=== PATIENT | female | born 1980 | race Caucasian/White ===

== ENCOUNTER 2023-10-10 18:46 | Inpatient (IN) | payer OTHER, SELFPAY ==
[2023-10-10 19:07] VITALS: BP 150/74; BP 209/118; PULSE 80; PULSE 84; RESP 18; TEMP 36.6; O2SAT 99; BMI 41.9
--- NOTE | 2023-10-10 19:27 | ED.GENADULT ---
HPI - General Adult General Chief complaint: Psychiatric Symptoms Stated complaint: SI W/ PLAN, SECT.12 Time Seen by Provider: 10/10/23 19:14 Source: patient Mode of arrival: EMS Limitations: no limitations History of Present Illness HPI narrative: 42 year old female with no known past medical history presents to the emergency department by ambulance. The patient reports that she was staying at her aunts house and that her aunt was concerned for her safety and proceeded to call an ambulance due to the patient expressing suicidal thoughts. Pt admits that she has been depressed for years and that a specific trigger in her life caused the depression. Pt did not wish to elaborate on the triggering event. Pt admits that I thought about ending my life today. When the pt was asked if she had any specific plans for SI she states Yes I have a few. Pt did not wish to elaborate further. She admits that she is on wellbutrin however states she has not been taking it. Pt states, I want to go home and I am anxious. Pt requesting medication for anxiety. Related Data Home Medications Medication Instructions Recorded Confirmed acyclovir 400 mg tablet 400 mg PO BID 10/10/23 10/10/23 linaclotide 145 mcg capsule 145 mcg PO QAM 10/10/23 10/10/23 (Linzess) semaglutide (weight loss) 2.4 2.4 mg subcut QWEEK 10/10/23 10/10/23 mg/0.75 mL subcutaneous pen injector (Wegovy) valsartan 80 mg tablet 80 mg PO BEDTIME 10/10/23 10/10/23 Allergies Allergy/AdvReac Type Severity Reaction Status Date / Time No Known Allergies Allergy Unverified 05/09/20 17:36 Review of Systems Constitutional: Constitutional: Reports as per HPI, Reports no additional constitutional complaints and Reports headache(s) ENT: Reports headache(s) Cardiovascular: Cardiovascular: Denies chest pain and Denies dyspnea Respiratory: Respiratory: Denies dyspnea Neurologic: Reports behavioral changes and Reports headache(s) Psychiatric: Psychiatric: Reports anxiety, Reports behavioral changes, Reports depression, Reports hopelessness and Reports suicidal ideation PMFSH Social History Social History Unable to assess alcohol history related to: Refusing to respond Smoked in Last 30 Days: No Use of substances other than those prescribed or required for medical reasons: Unable to respond Advance Directives: No Advance Directives Information Provided: No Patient : No Physical Exam ED Vital Signs: Vital Signs - 24 hr 10/11/23 20:10 10/12/23 05:00 Temperature 98.3 F 97.9 F Pulse Rate 91 66 Respiratory Rate 18 14 Blood Pressure 130/70 116/59 L Pulse Oximetry 98 98 Oxygen Delivery Method Room Air Room Air BMI result Body Mass Index 41.9 Const General: healthy appearing, comfortable, no acute distress, alert and awake Nutritional Appearance: well nourished Orientation/consciousness: patient oriented x3 HENMT Head: Yes normocephalic and Yes atraumatic Eyes Eyelids: Yes eyelids normal Resp Effort & Inspection: normal respiratory effort, able to speak in complete sentences and not labored Skin General skin exam: no rashes or lesions noted and elasticity normal Neuro General: patient oriented x3 Cranial nerves: Yes Bilaterally intact EOM present Cognition (Neuro): normal cognition Extrem Other: Moving all extremities well without any obvious deformities Course Reevaluation(s) Reevaluation #1: Patient's urine had 2+ bacteria but also over 20 squamous epithelial cells likely indicative of contamination. The patient states that she has no symptoms of urinary tract infection, no abdominal pain, dysuria frequency. Therefore we will not treat this as it is likely a contaminant. The patient was seen by the care team and was made a section 12 bed search for inpatient psychiatric care Time: 01:34 Reevaluation #2: 07:00 Oct 11 signed out to me by Dr. Plummer patient presented with SI on a Section 12 waiting for crisis eval no event reported over Time: 07:55 Reevaluation #3: Physician observation: Patient placed in physician observation 10/11/23 at 7am and still remains as a bedsearch and meets inpatient needs. She had an uneventful night and is not agitated. Medications Administered Generic Name Dose Route Start Last Admin Trade Name Freq PRN Reason Stop Dose Admin Acyclovir 400 mg 10/11/23 21:00 10/12/23 09:37 Acyclovir 200 Mg Capsule PO 400 mg BID SAMIRA Administration Valsartan 80 mg 10/11/23 21:00 10/11/23 20:22 Valsartan 80 Mg Tablet PO 80 mg BEDTIME SAMIRA Administration Protocol Discontinued Medications Generic Name Dose Route Start Last Admin Trade Name Freq PRN Reason Stop Dose Admin Acetaminophen 650 mg 10/10/23 20:05 10/10/23 20:29 Acetaminophen 325 Mg Tablet PO 10/10/23 20:06 650 mg ONCE ONE Administration Acyclovir 400 mg 10/10/23 22:03 10/10/23 22:27 Acyclovir 200 Mg Capsule PO 10/10/23 22:04 400 mg ONCE ONE Administration Diphenhydramine HCl 50 mg 10/11/23 21:54 10/11/23 22:09 Diphenhydramine Hcl 25 Mg Capsule PO 10/11/23 21:55 50 mg ONCE ONE Administration Lorazepam 1 mg 10/10/23 20:05 10/10/23 20:29 Lorazepam 1 Mg Tablet PO 10/10/23 20:06 1 mg ONCE ONE Administration Valsartan 80 mg 10/10/23 22:03 10/10/23 22:27 Valsartan 80 Mg Tablet PO 10/10/23 22:04 80 mg ONCE ONE Administration Protocol Medical Decision Making Medical Decision Making MDM Narrative: Patient will require medical clearance and care team evaluation. Differential Diagnosis Differential Diagnoses: The differential diagnosis associated with the presentation includes Suicidal Ideation Schizoaffective Disorder Bipolar Disorder Major Depressive Disorder Substance Abuse Disorder Lab Data 10/10/23 20:40 10/10/23 20:40 Labs: Lab Results 10/10/23 Range/Units 20:40 WBC 12.1 H (4.8-10.8) X10*3/uL RBC 4.51 (4.20-5.50) X10*6/uL Hgb 14.1 (12.0-16.0) g/dl Hct 41.5 (37.0-47.0) % MCV 92.0 (80.0-98.0) fL MCH 31.3 (27.0-33.0) pg MCHC 34.0 (31.0-35.0) g/dl RDW 12.6 (11.0-16.0) % Plt Count 244 (160-400) X10*3/uL MPV 10.8 (9.4-12.3) fL Immature Gran % (Auto) 0.2 (0.0-0.4) % Neut % (Auto) 77.9 H (45-73) % Lymph % (Auto) 16.1 L (20-40) % [place] % (Auto) 4.8 (2-11) % Eos % (Auto) 0.7 (0-4) % Baso % (Auto) 0.3 (0-2) % Lymph # (Auto) 1.9 (1.2-4.9) X10*3/uL [place] # (Auto) 0.6 (0.1-1.2) X10*3/uL Eos # (Auto) 0.1 (0.0-0.4) X10*3/uL Baso # (Auto) 0.0 (0.0-0.2) X10*3/uL Abs Immat Gran (auto) 0.03 (0.00-0.03) X10*3/uL Absolute Neuts (auto) 9.4 H (2.0-8.3) x10*3/uL Absolute Nucleated RBC 0.000 (0.0-0.012) X10*3/uL Nucleated RBC % (auto) 0.0 (0.0-0.2) /100WBC Sodium 140 (135-145) mmol/L Potassium 4.0 (3.3-5.1) mmol/L Chloride 107 (96-108) mmol/L Carbon Dioxide 25 (22-29) mmol/L Anion Gap 12 (12-20) BUN 16 (9-16) mg/dL Creatinine 0.88 (0.5-1.4) mg/dL Estim Creat Clear Calc 107.2 Estimated GFR > 60 Random Glucose 97 (60-115) mg/dL Calcium 9.5 (8.4-10.2) mg/dL Total Bilirubin 0.2 (0.0-1.0) mg/dL AST 11 (5-31) U/L ALT 12 (0-31) U/L Alkaline Phosphatase 94 (39-117) U/L Total Protein 7.5 (6.5-8.0) g/dL Albumin 4.2 (3.5-5.0) g/dL Urine Color Dark Yellow Urine Appearance Cloudy Urine pH 5.5 (5.0-9.0) Ur Specific [place] >= 1.030 H (1.005-1.025) Urine Protein 30 (1+) H (Neg-Trace) mg/dL Urine Glucose (UA) Negative (Negative) mg/dL Urine Ketones Trace (Negative) mg/dL Urine Blood Large (3+) H (Negative) Urine Nitrite Negative (Negative) Ur Leukocyte Esterase Small (1+) H (Negative) Urine RBC >20 H (0-2) /HPF Urine WBC 11-20 H (0-5) /HPF Ur Squamous Epith Cells >20 (0-2) /HPF Urine Bacteria 2+ (None Seen) Hyaline Casts 0-2 (0-2) /LPF Urine Test NEGATIVE (NEGATIVE) Salicylates < 5.0 L (15-30) mg/dL Urine Opiates Screen Not Detected (Not Detect) Urine Fentanyl Screen Not Detected (Not Detect) Acetaminophen < 3 (<30) mcg/mL Ur Barbiturates Screen Not Detected (Not Detect) Ur Phencyclidine Scrn Not Detected (Not Detect) Ur Amphetamines Screen Not Detected (Not Detect) U Benzodiazepines Scrn Not Detected (Not Detect) Urine Cocaine Screen Not Detected (Not Detect) U Marijuana (THC) Screen Not Detected (Not Detect) Ethyl Alcohol < 10 mg/dL COVID-19 (SUIR) Negative (Negative) COVID-19 Clin Com See Note Discharge Plan Discharge Clinical Impression: Depression Patient Disposition: Still a Patient Prescriptions: No Action valsartan 80 mg tablet 80 mg PO BEDTIME acyclovir 400 mg tablet 400 mg PO BID Linzess 145 mcg capsule 145 mcg PO QAM Wegovy 2.4 mg/0.75 mL pen injector 2.4 mg subcut QWEEK Interventions: [place]-Suicide Risk Severity Scale Last Done: 10/12/23 06:10
--- NOTE | 2023-10-10 19:38 | PC.NURSE ---
supplemental triage note: client has chronic GI issue with cnstipation, linzess in bag. patient contracted std (seemingly herpes) from and as a result feels despondent regarding this feeling like shes cursed forever (seemingly, intimately) no history of psycjhiatric hospitalizations did go to [facility] resp[facility] 2020 summer reports is a sdrinker, this isnt a concern for her. reports no recent hallucinations and contracts for safety here.
[2023-10-10] MEDS: LORazepam 1 MG TABLET PO (20:29)
[2023-10-10] MEDS: Acetaminophen 325 MG TABLET 650 MG PO (20:29)
[2023-10-10 20:49] LABS: MANUAL DIFF FLAG NO
[2023-10-10 20:52] LABS: Basophils Percent Auto 0.3 % (0-2); Eosinophils Absolute Auto 0.1 X10*3/uL (0.0-0.4); Eosinophils Percent Auto 0.7 % (0-4); Hematocrit 41.5 % (37.0-47.0); Hemoglobin 14.1 g/dl (12.0-16.0); Imm Gran Abs Auto 0.03 X10*3/uL (0.00-0.03); Imm Gran Pct Auto 0.2 % (0.0-0.4); Lymphocytes Absolute Auto 1.9 X10*3/uL (1.2-4.9); Lymphocytes Percent Auto 16.1 % (20-40); Mean Corpuscular Hemoglobin 31.3 pg (27.0-33.0); Mean Platelet Volume 10.8 fL (9.4-12.3); Monocytes Absolute Auto 0.6 X10*3/uL (0.1-1.2); Monocytes Percent Auto 4.8 % (2-11); Neutrophils Absolute Auto 9.4 x10*3/uL (2.0-8.3); Neutrophils Percent Auto 77.9 % (45-73); Platelet Count 244 X10*3/uL (160-400); Red Blood Count 4.51 X10*6/uL (4.20-5.50); Red Cell Distribution Width 12.6 % (11.0-16.0); White Blood Count 12.1 X10*3/uL (4.8-10.8)
[2023-10-10 20:53] LABS: Appearance Urine Cloudy; Color Urine Dark Yellow; Glucose Urine UA Negative (Negative); Leukocyte Esterase Urine Small (1+) (Negative); Nitrite Urine Negative (Negative); PH 5.5 (5.0-9.0); Specific Gravity - Urine >= 1.030 (1.005-1.025); UMIC TRIGGER UA YES; Urine Blood Large (3+) (Negative); Urine Ketones Trace mg/dL (Negative); Urine Protein 30 (1+) mg/dL (Neg-Trace)
[2023-10-10 20:54] LABS: UPreg QC Valid YES; Urine Pregnancy NEGATIVE (NEGATIVE)
[2023-10-10 20:58] LABS: Bacteria Urine 2+ (None Seen); Hyaline Casts Urine 0-2 /LPF (0-2); RBC Urine >20 /HPF (0-2); Squamous Epithelial Cell Urine >20 /HPF (0-2)
[2023-10-10 21:00] LABS: Amphetamine Screen Urine Not Detected (Not Detect); Barbiturates, Urine Not Detected (Not Detect); Benzodiazepines Screen Urine Not Detected (Not Detect); Cannabinoid Screen Urine Not Detected (Not Detect); Cocaine Screen Urine Not Detected (Not Detect); Fentanyl, urine Not Detected (Not Detect); Opiate Screen Urine Not Detected (Not Detect); Phencyclidine Screen Urine Not Detected (Not Detect)
[2023-10-10 21:12] LABS: COVID-19 Test Negative (Negative); IDNOW Serial# 08D9AD1C
[2023-10-10 21:37] LABS: Acetaminophen LAB < 3 mcg/mL (<30); Salicylate < 5.0 mg/dL (15-30)
[2023-10-10 21:38] LABS: Alanine Aminotransferase 12 U/L (0-31); Albumin Level 4.2 g/dL (3.5-5.0); Alkaline Phosphatase 94 U/L (39-117); Anion Gap 12 (12-20); Aspartate Amino Transferase 11 U/L (5-31); Bilirubin Total 0.2 mg/dL (0.0-1.0); Blood Urea Nitrogen 16 mg/dL (9-16); Calcium 9.5 mg/dL (8.4-10.2); Carbon Dioxide 25 mmol/L (22-29); Chloride 107 mmol/L (96-108); Creatinine Clr Calc Pharmacy 107.2; Estimated Glomerular Filt Rate > 60; Ethanol < 10 mg/dL; Glucose Random 97 mg/dL (60-115); Sodium 140 mmol/L (135-145); Total Protein 7.5 g/dL (6.5-8.0)
[2023-10-10] MEDS: Valsartan 80 MG TABLET PO (22:27)
[2023-10-10] MEDS: Acyclovir 200 MG CAPSULE 400 MG PO (22:27)
[2023-10-11 06:36] VITALS: RESP 17
--- NOTE | 2023-10-11 07:40 | PC.NURSE ---
Assumed care of patient at 0700, patient appears to be sleeping at this time, respirations even and unlabored, no apparent distress. Plan of care for IPLOC
--- NOTE | 2023-10-11 08:47 | MHC.CARE ---
RAD Team conducted statewide bedsearch, referral being reviewed by [facility], [facility], [facility], [facility] , [facility] , [facility] , [facility],and [place]. RAD team to f/u with facilities to see outcome
--- NOTE | 2023-10-11 13:35 | MHC.CARE ---
Patient requests no information be given out to her aunt or anyone else regarding her care.
--- NOTE | 2023-10-11 18:40 | PC.NURSE ---
Pt has unventful day in the pod, spending most of the time in her room. Occasionally ambulating independently to bathroom and common area without issue. Pt offers no complaints to this RN. night medications ordered by provider
[2023-10-11 20:10] VITALS: BP 130/70; PULSE 91; RESP 18; TEMP 36.8; O2SAT 98
[2023-10-11] MEDS: Acyclovir 200 MG CAPSULE 400 MG PO (20:22)
[2023-10-11] MEDS: Valsartan 80 MG TABLET PO (20:22)
[2023-10-11] MEDS: diphenhydrAMINE HCL 25 MG CAPSULE 50 MG PO (22:09)
[2023-10-12 05:00] VITALS: BP 116/59; PULSE 66; RESP 14; TEMP 36.6; O2SAT 98
[2023-10-12] MEDS: Acyclovir 200 MG CAPSULE 400 MG PO ×2 (09:37→20:58)
--- NOTE | 2023-10-12 10:28 | MHC.CARE ---
RAD Team conducted statewide bedsearch, referral being reviewed by [facility] martinez, [facility], [facility], [facility] , [facility] , [facility] , [facility] and [place]. RAD team to f/u with facilities to see outcome
[2023-10-12 12:00] LABS: COVID-19 Test Negative (Negative); IDNOW Serial# 6674DD1D
[2023-10-12 15:20] VITALS: BP 124/60; PULSE 80; RESP 16; TEMP 36.6; O2SAT 98
--- NOTE | 2023-10-12 15:43 | PC.NURSE ---
Patient resting quietly in her room at this time. Appropriately approaching nurse's station for requests.
[2023-10-12] MEDS: Valsartan 80 MG TABLET PO (20:59)
[2023-10-12] MEDS: LORazepam 1 MG TABLET PO (21:00)
[2023-10-12 21:04] VITALS: BP 132/72; PULSE 95; RESP 18; TEMP 36.3; O2SAT 95
--- NOTE | 2023-10-12 23:24 | MHC.CARE ---
RAD Team conducted state wide bed search for this pt, referral was sent to [place], [facility], [facility], [facility], [facility], [facility], [facility], [facility], [facility], [facility] for review. RAD Team to follow up tomorrow
--- NOTE | 2023-10-13 07:14 | PC.NURSE ---
Assumed care of patient at 0700, patient is up in chair eating breakfast at this time, offering no complaints to this RN, respirations even and unlabored, no apparent distress. Continue plan of care for sec 12, inpt bedsearch
[2023-10-13] MEDS: Acyclovir 200 MG CAPSULE 400 MG PO ×2 (08:44→21:46)
[2023-10-13 10:34] VITALS: BP 117/59; PULSE 85; RESP 18; TEMP 37.1; O2SAT 97
[2023-10-13 18:49] VITALS: BP 120/64; PULSE 90; RESP 15; TEMP 36.4; O2SAT 99
[2023-10-13 18:53] VITALS: BMI 42.0
--- NOTE | 2023-10-13 19:29 | HO.PSYEVENT2 ---
Event Note Date of Service: 10/13/23 Psych On-Call Event Note: concerns regarding pts mental status denies active si in this setting after nursing discussion change to 5 min cks Time Spent With Patient Time: Total time managing care of this patient today ____ minutes.
[2023-10-13] MEDS: LORazepam 1 MG TABLET PO (19:36)
--- NOTE | 2023-10-13 19:45 | PC.NURSE ---
Skin check completed, skin clear. Pt placed on 5 minute checks d/t safety concerns for SI with a plan that keeps changing. Admission incomplete and passed off to incoming nurse.
[2023-10-13 21:40] VITALS: BP 124/78; PULSE 73; RESP 16; TEMP 36.5; O2SAT 97
[2023-10-13] MEDS: hydrOXYzine HCL 25 MG TABLET PO (21:46)
[2023-10-13] MEDS: Valsartan 80 MG TABLET PO (21:46)
--- NOTE | 2023-10-14 06:42 | PC.ADMIT ---
Pt is a 42 year old female admitted to the unit on a CV after referral from the CARE team at [facility] ED. Arrived on unit at 1841, 3 day notice signed. This is the pt?s [address]st admission to [facility]s behavioral health unit. Pt was diagnosed with herpes a couple of years ago, which she contracted from an ex-bf. She states that this is when her depression started, and she is depressed at ?baseline?, however for unknown reason today she felt like ?everything was falling apart?, and made suicidal statements while having dinner with her aunt, who then called 911. Pt feels that she has had multiple failed relationships since this diagnosis, and feels that she will now be alone forever. Pt reported feeling as though she cannot see the point of living, and expressed SI with plans to either take a bottle of pills or stay outside all night and freeze to . She denies sleep or appetite disturbances. Denies AH/VH. Pt reportedly went to a [facility] in 2020 and was prescribed medications, however once she started feeling better she stopped taking them. She has an outpatient therapist at [facility], but does not have a psychiatric med prescriber; her PCP has reportedly been prescribing her meds. Pt reports a history of SI, denied any attempts or self-harming behavior. At time of admission to the unit pt presented as extremely anxious and tearful, reported feeling ?overwhelmed?. Pt was given prn ativan with positive effect. Thought process was logical and organized, no evidence of perceptual disturbance noted. Pt was placed on 5 minute safety checks due to suicidal thoughts and level of anxiety, however denied intent on the unit.?
[2023-10-14 07:45] LABS: Cholesterol 169 mg/dL (<200); HDL Cholesterol 48 mg/dL (>40); LDL Cholesterol Calculated 106 mg/dL (<100); Triglycerides 76 mg/dL (<150)
[2023-10-14 07:50] VITALS: BP 98/51; PULSE 89; RESP 14; TEMP 36; O2SAT 97
[2023-10-14 08:01] LABS: Thyroid Stimulating Hormone 2.14 uIU/mL (0.32-4.0)
[2023-10-14 08:03] LABS: Estimated Average Glucose 94 mg/dL; Hemoglobin A1c % 4.9 % (<6.0)
[2023-10-14 08:28] LABS: Vitamin B12 760 pg/mL (200-900)
[2023-10-14] MEDS: Acyclovir 200 MG CAPSULE 400 MG PO ×2 (08:35→21:52)
[2023-10-14] MEDS: PT OWN (Linaclotide [Linzess] 145 mcg capsule) 145 EACH PO (08:35)
--- NOTE | 2023-10-14 08:44 | PHA.MEDREC ---
Pharmacy Consult ? Medication Reconciliation Pharmacy has completed the medication reconciliation.Pharmacy has completed med rec done by nursing. Confirmed that pt has stopped taking bupropion.
--- NOTE | 2023-10-14 09:59 | HO.PSYADMNOT ---
HPI Date of Service: 10/14/23 Chief Complaint: SI/depression Sources of Information: patient interviewed, chart reviewed and crisis/core team assessment reviewed HPI Subjective Notes: Khan Warning, Conditional Voluntary and 3 Day Narrative: Patient is a 42 year old female with hx of MDD and PTSD who presented to ED secondary to suicidal ideation d/t increased depressive symptoms. Per crisis report, pt is currently residing with her aunt who called 911 d/t patient reporting suicidal ideation. Pt reported hx of failed romantic relationships since her diagnosis of herpes; which had made the patient believe she will always be alone. She reported being depressed since this occurred. Pt reported suicide plan to either take a bottle of pills or go outside and freeze to . denies HI/VH/AH. During admission assessment, pt presents calm, cooperative and tearful. Pt reports feeling depressed and hopeless ; pt stated, I came to the hospital because my aunt called 911 because I was saying I was going to hurt myself. I've been really depressed since my ex OD'd and then the person I dated after him gave me herpes then broke up with me. Everyone breaks up with me after they hear the word herpes. It makes me feel hopeless . Pt reports she feels she is going to stop telling people I have herpes to just have a normal life . She reports being in online support groups. Pt reports suicidal ideation; pt stated, I do feel suicidal but I want to go home. I was thinking of either taking pills or sleeping outside and dying of the cold . Pt denies any substance use. She reports being prescribed Wellbutrin recently but stopped taking it because it was the situation in my life that is making me sad not that I'm sad for no reason . Pt reports she would like to start taking Wellbutrin again to see if it works ; hx of taking Paxil and Prozac but stated, they only made me gain weight . denies HI/VH/AH. Past Psychiatric History: Therapist: Violetta ([facility]) does not have outpatient psychiatric prescriber. denies any prior suicide attempts or self harming behavior. denies hx of inpatient psychiatric hospitalizations. hx med trials: Paxil, Prozac, Wellbutrin. Medical Evaluation Reviewed: Yes [facility] Family History: Mother: schizophrenia Father: depression Sister: depression Social History: Living with aunt in [place], [place]. Single, no children. 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 Substance History: denies Trauma History: yes Diagnostics Vital Signs (24Hr): Vital Signs - 24 hr 10/13/23 10:34 10/13/23 18:49 10/13/23 21:40 Temperature 98.7 F 97.6 F 97.7 F Pulse Rate 85 90 73 Respiratory Rate 18 15 16 Blood Pressure 117/59 L 120/64 124/78 Pulse Oximetry 97 99 97 Oxygen Delivery Method Room Air Room Air Room Air 10/14/23 07:50 Temperature 96.8 F Pulse Rate 89 Respiratory Rate 14 Blood Pressure 98/51 L Pulse Oximetry 97 Oxygen Delivery Method Room Air BMI result Body Mass Index 42.0 Labs 10/10/23 20:40 10/10/23 20:40 Labs: Laboratory Results - last 48 hr 10/12/23 10/14/23 11:09 07:09 Estimat Average Glucose 94 Hemoglobin A1c % 4.9 Triglycerides 76 Cholesterol 169 LDL Cholesterol, Calc 106 H HDL Cholesterol 48 Vitamin B12 760 Folate 8.0 TSH 2.14 Free T4 1.00 COVID-19 (SURI) Negative COVID-19 Clin Com See Note Meds/Allergies Meds Home Medications Medication Instructions Recorded Confirmed Type acyclovir 400 mg tablet 400 mg PO BID 10/10/23 10/10/23 History linaclotide 145 mcg capsule 145 mcg PO QAM 10/10/23 10/10/23 History (Linzess) semaglutide (weight loss) 2.4 2.4 mg subcut QWEEK 10/10/23 10/10/23 History mg/0.75 mL subcutaneous pen injector (Ambrose) valsartan 80 mg tablet 80 mg PO BEDTIME 10/10/23 10/10/23 History Allergies Allergies Allergy/AdvReac Type Severity Reaction Status Date / Time No Known Allergies Allergy Verified 10/13/23 18:24 Mental Status Exam Mental Status Exam Narrative: Pt is alert and oriented; behavior is cooperative, calm, tearful; dressed in casual attire; mood is described as depressed ; eye contact appropriate; Speech is normal rate, volume and prosody and not pressured; thought process is organized; Thought content is on tx; otherwise pertinent to relevant topics and without any delusional content, paranoid ideations or grandiosity; denies HI/VH/AH. Pt reports suicidal ideation with plan. Assessment & Plan Assessment & Plan (1) MDD (major depressive disorder): Status: Acute Code(s): F32.9 - Major depressive disorder, single episode, unspecified (2) PTSD (post-traumatic stress disorder): Status: Acute Code(s): F43.10 - Post-traumatic stress disorder, unspecified Plan Patient is a 42 year old female with hx of MDD and PTSD who presented to ED secondary to suicidal ideation d/t increased depressive symptoms. Plan: CV Signed 3 day notice 15 minute safety checks continue home medications Start: Wellbutrin XL 150mg PO daily Referral to outpatient psychiatric provider discharge planning Patient educated on: diagnosis, medication risk/benefits and therapeutic strategies Informed Consent: understands Reason for continued inpatient stay Substantial Risk for: harm to self and med/psych decompensation Statement Statement: I have reviewed the history and physical and performed a pertinent examination on my patient. No changes have occurred unless specified. If the History and Physical was not performed prior to admission, the Hospitalist's service will be consulted for completing the admission physical. Time Spent With Patient Time: Total time managing care of this patient today _60___ minutes.
[2023-10-14 12:14] VITALS: BMI 41.9
[2023-10-14 21:50] VITALS: BP 118/64; PULSE 80; RESP 16; TEMP 36.4; O2SAT 99
[2023-10-14] MEDS: Valsartan 80 MG TABLET PO (21:52)
[2023-10-14] MEDS: traZODone HCL 50 MG TABLET PO (21:52)
[2023-10-14] MEDS: LORazepam 0.5 MG TABLET PO (21:52)
[2023-10-15 07:25] VITALS: BP 107/54; PULSE 83; RESP 18; TEMP 36.1; O2SAT 94
[2023-10-15] MEDS: Acyclovir 200 MG CAPSULE 400 MG PO ×2 (08:13→21:21)
[2023-10-15] MEDS: buPROPion HCl XL 150 MG TAB.ER.24H PO (08:13)
[2023-10-15] MEDS: PT OWN (Linaclotide [Linzess] 145 mcg capsule) 145 EACH PO (08:13)
--- NOTE | 2023-10-15 08:58 | HO.PSYCHPN ---
Subjective Subjective Date of Service: 10/15/23 Reason For Visit: SI/depression Subjective Notes: 3 Day Interim History: Reviewed with Dr. Davila. Pt continues to report feeling anxious and depressed ; pt stated, I feel down and hopeless. People with cold sores don't tell people before dating. I'm not going to tell people I have herpes . Pt reports suicidal ideation. denies HI/VH/AH. attending groups. keeping to self. Medication Compliance: Yes Side effects from medications: No Attending Groups: Yes Review of Systems Constitutional: Reports as per HPI Eyes: Reports as per HPI Reports as per HPI Cardiovascular: Reports as per HPI Respiratory: Reports as per HPI Gastrointestinal: Reports as per HPI Genitourinary: Reports as per HPI Musculoskeletal: Reports as per HPI Skin/Breast: Reports as per HPI Reports as per HPI Psychiatric: Reports as per HPI Endocrine: Reports as per HPI Hematologic/Lymphatic: Reports as per HPI Allergic/Immunologic: Reports as per HPI Mental Status Exam Mental Status Exam Narrative: Pt is alert and oriented; behavior is cooperative, calm, tearful; dressed in casual attire; mood is described as depressed ; eye contact appropriate; Speech is normal rate, volume and prosody and not pressured; thought process is organized; Thought content is on tx; otherwise pertinent to relevant topics and without any delusional content, paranoid ideations or grandiosity; denies HI/VH/AH. Pt reports suicidal ideation with plan. Diagnostics Vital Signs (24Hr): Vital Signs - 24 hr 10/14/23 21:50 10/15/23 07:25 Temperature 97.5 F 97.0 F Pulse Rate 80 83 Respiratory Rate 16 18 Blood Pressure 118/64 107/54 L Pulse Oximetry 99 94 Oxygen Delivery Method Room Air Room Air BMI result Body Mass Index 41.9 Labs 10/10/23 20:40 10/10/23 20:40 Labs: Laboratory Results - last 48 hr 10/14/23 07:09 Estimat Average Glucose 94 Hemoglobin A1c % 4.9 Triglycerides 76 Cholesterol 169 LDL Cholesterol, Calc 106 H HDL Cholesterol 48 Vitamin B12 760 Folate 8.0 TSH 2.14 Free T4 1.00 Medications Medications Current Medications Acetaminophen (Acetaminophen 325 Mg Tablet) 650 mg PO Q6H PRN PRN Reason: Headache/Pain Mild Scale (1-3) Acyclovir (Acyclovir 200 Mg Capsule) 400 mg PO BID SAMIRA Last Admin: 10/15/23 08:13 Dose: 400 mg Al Hydroxide/Mg Hydroxide (Magnesium Hydrox/Alum Hydrox 30 Ml Oral.Susp) 30 ml PO Q6H PRN PRN Reason: Heartburn/Nausea Bupropion HCl (Bupropion Hcl Xl 150 Mg Tab.Er.24h) 150 mg PO DAILY [facility] Last Admin: 10/15/23 08:13 Dose: 150 mg Hydroxyzine HCl (Hydroxyzine Hcl 25 Mg Tablet) 25 mg PO Q6H PRN PRN Reason: Anxiety Last Admin: 10/13/23 21:46 Dose: 25 mg Lorazepam (Lorazepam 0.5 Mg Tablet) 0.5 mg PO BID PRN PRN Reason: Anxiety Last Admin: 10/14/23 21:52 Dose: 0.5 mg Magnesium Hydroxide (Milk Of Magnesia 30 Ml Oral.Susp) 30 ml PO DAILY PRN PRN Reason: Constipation Pt Own (Linaclotide [Linzess] 145 Mcg Capsule) 145 mcg PO DAILY@0630 [facility] Last Admin: 10/15/23 08:13 Dose: 145 mcg Pat Own Med ( Semaglutide [Wegovy] 2.4 Mg/0.75 Ml Pen Injector) 2.4 mg SUBCUT We@0900 [facility] Last Admin: 10/13/23 13:49 Dose: Not Given Trazodone HCl (Trazodone Hcl 50 Mg Tablet) 50 mg PO BEDTIME MRX1 PRN PRN Reason: Insomnia Last Admin: 10/14/23 21:52 Dose: 50 mg Valsartan (Valsartan 80 Mg Tablet) 80 mg PO BEDTIME [facility]; Protocol Last Admin: 10/14/23 21:52 Dose: 80 mg Allergies Allergies Allergy/AdvReac Type Severity Reaction Status Date / Time No Known Allergies Allergy Verified 10/13/23 18:24 Assessment & Plan Assessment & Plan (1) MDD (major depressive disorder): Status: Acute Code(s): F32.9 - Major depressive disorder, single episode, unspecified (2) PTSD (post-traumatic stress disorder): Status: Acute Code(s): F43.10 - Post-traumatic stress disorder, unspecified Plan Patient is a 42 year old female with hx of MDD and PTSD who presented to ED secondary to suicidal ideation d/t increased depressive symptoms. Plan: CV Signed 3 day notice 15 minute safety checks continue home medications Start: Wellbutrin XL 150mg PO daily Referral to outpatient psychiatric provider discharge planning 10/15: Pt continues to report feeling anxious and depressed ; pt stated, I feel down and hopeless. People with cold sores don't tell people before dating. I'm not going to tell people I have herpes . Pt reports suicidal ideation. denies HI/VH/AH. attending groups. keeping to self. continue current tx plan. Patient educated on: diagnosis, medication risk/benefits and therapeutic strategies Informed Consent: understands Reason for continued inpatient stay Substantial Risk for: harm to self and med/psych decompensation Time Spent With Patient Time: Total time managing care of this patient today _20___ minutes.
[2023-10-15 21:15] VITALS: BP 107/66; PULSE 90; RESP 16; TEMP 36.2; O2SAT 100
[2023-10-15] MEDS: Valsartan 80 MG TABLET PO (21:21)
[2023-10-15] MEDS: LORazepam 0.5 MG TABLET PO (21:21)
[2023-10-15] MEDS: hydrOXYzine HCL 25 MG TABLET PO (21:21)
[2023-10-16 07:20] VITALS: BP 103/50; PULSE 107; RESP 16; TEMP 37.2; O2SAT 95
[2023-10-16] MEDS: PT OWN (Linaclotide [Linzess] 145 mcg capsule) 145 EACH PO (08:58)
[2023-10-16] MEDS: buPROPion HCl XL 150 MG TAB.ER.24H PO (08:58)
[2023-10-16] MEDS: Acyclovir 200 MG CAPSULE 400 MG PO ×2 (08:58→21:16)
--- NOTE | 2023-10-16 14:57 | HO.PSYCHPN ---
Subjective Subjective Date of Service: 10/16/23 Reason For Visit: SI/depression Interim History: Patient seen and discussed with RN. She reports she is feeling a little better. She is having sore throat. Denies active SI. Is on 5 min checks. Discussed with team to go to 15 min checks. Anxiety and depression continue. Review of Systems Constitutional: Reports as per HPI, Reports no additional constitutional complaints and Reports headache(s) Eyes: Reports as per HPI Reports as per HPI and Reports headache(s) Cardiovascular: Reports as per HPI, Denies chest pain and Denies dyspnea Respiratory: Reports as per HPI and Denies dyspnea Gastrointestinal: Reports as per HPI Musculoskeletal: Reports as per HPI Skin/Breast: Reports as per HPI Reports as per HPI, Reports behavioral changes and Reports headache(s) Psychiatric: Reports as per HPI, Reports anxiety, Reports behavioral changes, Reports depression, Reports hopelessness and Reports suicidal ideation Endocrine: Reports as per HPI Hematologic/Lymphatic: Reports as per HPI Allergic/Immunologic: Reports as per HPI Mental Status Exam Mental Status Exam Narrative: Pt is alert and oriented; behavior is cooperative, calm, tearful; dressed in casual attire; mood is described as depressed ; eye contact appropriate; Speech is normal rate, volume and prosody and not pressured; thought process is organized; Thought content is on tx; otherwise pertinent to relevant topics and without any delusional content, paranoid ideations or grandiosity; denies HI/VH/AH. Pt reports suicidal ideation with plan. Diagnostics Vital Signs (24Hr): Vital Signs - 24 hr 10/15/23 21:15 10/16/23 07:20 Temperature 97.1 F 98.9 F Pulse Rate 90 107 H Respiratory Rate 16 16 Blood Pressure 107/66 103/50 L Pulse Oximetry 100 95 Oxygen Delivery Method Room Air Room Air BMI result Body Mass Index 41.9 Labs 10/10/23 20:40 10/10/23 20:40 Medications Medications Current Medications Acetaminophen (Acetaminophen 325 Mg Tablet) 650 mg PO Q6H PRN PRN Reason: Headache/Pain Mild Scale (1-3) Acyclovir (Acyclovir 200 Mg Capsule) 400 mg PO BID [facility] Last Admin: 10/16/23 08:58 Dose: 400 mg Al Hydroxide/Mg Hydroxide (Magnesium Hydrox/Alum Hydrox 30 Ml Oral.Susp) 30 ml PO Q6H PRN PRN Reason: Heartburn/Nausea Bupropion HCl (Bupropion Hcl Xl 150 Mg Tab.Er.24h) 150 mg PO DAILY [facility] Last Admin: 10/16/23 08:58 Dose: 150 mg Hydroxyzine HCl (Hydroxyzine Hcl 25 Mg Tablet) 25 mg PO Q6H PRN PRN Reason: Anxiety Last Admin: 10/15/23 21:21 Dose: 25 mg Lorazepam (Lorazepam 0.5 Mg Tablet) 0.5 mg PO DAILY PRN PRN Reason: Anxiety Last Admin: 10/15/23 21:21 Dose: 0.5 mg Magnesium Hydroxide (Milk Of Magnesia 30 Ml Oral.Susp) 30 ml PO DAILY PRN PRN Reason: Constipation Pt Own (Linaclotide [Linzess] 145 Mcg Capsule) 145 mcg PO DAILY@0630 [facility] Last Admin: 10/16/23 08:58 Dose: 145 mcg Pat Own Med ( Semaglutide [Wegovy] 2.4 Mg/0.75 Ml Pen Injector) 2.4 mg SUBCUT We@0900 [facility] Last Admin: 10/13/23 13:49 Dose: Not Given Trazodone HCl (Trazodone Hcl 50 Mg Tablet) 50 mg PO BEDTIME MRX1 PRN PRN Reason: Insomnia Last Admin: 10/14/23 21:52 Dose: 50 mg Valsartan (Valsartan 80 Mg Tablet) 80 mg PO BEDTIME [facility]; Protocol Last Admin: 10/15/23 21:21 Dose: 80 mg Allergies Allergies Allergy/AdvReac Type Severity Reaction Status Date / Time No Known Allergies Allergy Verified 10/13/23 18:24 Assessment & Plan Assessment & Plan (1) MDD (major depressive disorder): Status: Acute Code(s): F32.9 - Major depressive disorder, single episode, unspecified (2) PTSD (post-traumatic stress disorder): Status: Acute Code(s): F43.10 - Post-traumatic stress disorder, unspecified Plan Patient is a 42 year old female with hx of MDD and PTSD who presented to ED secondary to suicidal ideation d/t increased depressive symptoms. Plan: CV Signed 3 day notice 15 minute safety checks continue home medications Start: Wellbutrin XL 150mg PO daily Referral to outpatient psychiatric provider discharge planning 10/15: Pt continues to report feeling anxious and depressed ; pt stated, I feel down and hopeless. People with cold sores don't tell people before dating. I'm not going to tell people I have herpes . Pt reports suicidal ideation. denies HI/VH/AH. attending groups. keeping to self. continue current tx plan. 10/16: Continue current management and treatment plan. Reason for continued inpatient stay Substantial Risk for: harm to self and rapid decompensation Time Spent With Patient Time: Total time managing care of this patient today ____ minutes.
[2023-10-16 21:05] VITALS: BP 138/63; PULSE 97; RESP 16; TEMP 36.9; O2SAT 97
[2023-10-16] MEDS: Valsartan 80 MG TABLET PO (21:16)
[2023-10-16] MEDS: LORazepam 0.5 MG TABLET PO (21:17)
[2023-10-16] MEDS: hydrOXYzine HCL 25 MG TABLET PO (21:17)
[2023-10-16] MEDS: guaiFENesin LA 600 MG TAB.ER.12H PO (21:34)
[2023-10-16] MEDS: Throat Lozenge, Medicated LOZENGE 1 LOZENGE MUCOUS MEM (21:34)
[2023-10-17 07:15] VITALS: BP 88/52; PULSE 92; RESP 16; TEMP 37; O2SAT 95
[2023-10-17] MEDS: Acyclovir 200 MG CAPSULE 400 MG PO ×2 (08:42→21:08)
[2023-10-17] MEDS: PT OWN (Linaclotide [Linzess] 145 mcg capsule) 145 EACH PO (08:42)
[2023-10-17] MEDS: buPROPion HCl XL 150 MG TAB.ER.24H PO (08:42)
[2023-10-17 09:54] LABS: IDNOW Serial# 08D9AD1C; Strep A Nucleic Acid Negative (Negative)
[2023-10-17 09:56] LABS: COVID-19 Test Negative (Negative); IDNOW Serial# 152EDE1D
--- NOTE | 2023-10-17 14:43 | HO.PSYCHPN ---
Subjective Subjective Date of Service: 10/17/23 Reason For Visit: SI/depression Interim History: Patient seen and discussed with RN. Continues to have cold symptoms. Cough and sore throat. Strep and COVID tests were negative. She reports she is feeling a little better overall. Denies active SI. Is on 15 min checks. Review of Systems Constitutional: Reports as per HPI, Reports no additional constitutional complaints and Reports headache(s) Eyes: Reports as per HPI Reports as per HPI and Reports headache(s) Cardiovascular: Reports as per HPI, Denies chest pain and Denies dyspnea Respiratory: Reports as per HPI and Denies dyspnea Gastrointestinal: Reports as per HPI Musculoskeletal: Reports as per HPI Skin/Breast: Reports as per HPI Reports as per HPI, Reports behavioral changes and Reports headache(s) Psychiatric: Reports as per HPI, Reports anxiety, Reports behavioral changes, Reports depression, Reports hopelessness and Reports suicidal ideation Endocrine: Reports as per HPI Hematologic/Lymphatic: Reports as per HPI Allergic/Immunologic: Reports as per HPI Mental Status Exam Mental Status Exam Narrative: Pt is alert and oriented; behavior is cooperative, calm, tearful; dressed in casual attire; mood is described as depressed ; eye contact appropriate; Speech is normal rate, volume and prosody and not pressured; thought process is organized; Thought content is on tx; otherwise pertinent to relevant topics and without any delusional content, paranoid ideations or grandiosity; denies HI/VH/AH. Pt reports suicidal ideation with plan. Diagnostics Vital Signs (24Hr): Vital Signs - 24 hr 10/16/23 21:05 10/17/23 07:15 Temperature 98.4 F 98.6 F Pulse Rate 97 92 Respiratory Rate 16 16 Blood Pressure 138/63 88/52 L Pulse Oximetry 97 95 Oxygen Delivery Method Room Air Room Air BMI result Body Mass Index 41.9 Labs 10/10/23 20:40 10/10/23 20:40 Labs: Laboratory Results - last 48 hr 10/17/23 09:35 COVID-19 ([facility]) Negative COVID-19 Clin Com See Note S. pyogenes GrpA RONALD Negative Medications Medications Current Medications Acetaminophen (Acetaminophen 325 Mg Tablet) 650 mg PO Q6H PRN PRN Reason: Headache/Pain Mild Scale (1-3) Acyclovir (Acyclovir 200 Mg Capsule) 400 mg PO BID [facility] Last Admin: 10/17/23 08:42 Dose: 400 mg Al Hydroxide/Mg Hydroxide (Magnesium Hydrox/Alum Hydrox 30 Ml Oral.Susp) 30 ml PO Q6H PRN PRN Reason: Heartburn/Nausea Benzocaine (Throat Lozenge, Medicated Lozenge) 1 lozenge MUCOUS MEM Q2H PRN PRN Reason: Sore Throat Last Admin: 10/16/23 21:34 Dose: 1 lozenge Bupropion HCl (Bupropion Hcl Xl 150 Mg Tab.Er.24h) 150 mg PO DAILY [facility] Last Admin: 10/17/23 08:42 Dose: 150 mg Guaifenesin (Guaifenesin La 600 Mg Tab.Er.12h) 600 mg PO BID PRN PRN Reason: Cough Last Admin: 10/16/23 21:34 Dose: 600 mg Hydroxyzine HCl (Hydroxyzine Hcl 25 Mg Tablet) 25 mg PO Q6H PRN PRN Reason: Anxiety Last Admin: 10/16/23 21:17 Dose: 25 mg Lorazepam (Lorazepam 0.5 Mg Tablet) 0.5 mg PO DAILY PRN PRN Reason: Anxiety Last Admin: 10/16/23 21:17 Dose: 0.5 mg Magnesium Hydroxide (Milk Of Magnesia 30 Ml Oral.Susp) 30 ml PO DAILY PRN PRN Reason: Constipation Pt Own (Linaclotide [Linzess] 145 Mcg Capsule) 145 mcg PO DAILY@0630 [facility] Last Admin: 10/17/23 08:42 Dose: 145 mcg Pat Own Med ( Semaglutide [Wegovy] 2.4 Mg/0.75 Ml Pen Injector) 2.4 mg SUBCUT We@0900 [facility] Last Admin: 10/13/23 13:49 Dose: Not Given Trazodone HCl (Trazodone Hcl 50 Mg Tablet) 50 mg PO BEDTIME MRX1 PRN PRN Reason: Insomnia Last Admin: 10/14/23 21:52 Dose: 50 mg Valsartan (Valsartan 80 Mg Tablet) 80 mg PO BEDTIME [facility]; Protocol Last Admin: 10/16/23 21:16 Dose: 80 mg Allergies Allergies Allergy/AdvReac Type Severity Reaction Status Date / Time No Known Allergies Allergy Verified 10/13/23 18:24 Assessment & Plan Assessment & Plan (1) MDD (major depressive disorder): Status: Acute Code(s): F32.9 - Major depressive disorder, single episode, unspecified (2) PTSD (post-traumatic stress disorder): Status: Acute Code(s): F43.10 - Post-traumatic stress disorder, unspecified Plan Patient is a 42 year old female with hx of MDD and PTSD who presented to ED secondary to suicidal ideation d/t increased depressive symptoms. Plan: CV Signed 3 day notice 15 minute safety checks continue home medications Start: Wellbutrin XL 150mg PO daily Referral to outpatient psychiatric provider discharge planning 10/15: Pt continues to report feeling anxious and depressed ; pt stated, I feel down and hopeless. People with cold sores don't tell people before dating. I'm not going to tell people I have herpes . Pt reports suicidal ideation. denies HI/VH/AH. attending groups. keeping to self. continue current tx plan. 10/16: Continue current management and treatment plan. 10/17: continue current management and treatment plan. Reason for continued inpatient stay Substantial Risk for: harm to self and rapid decompensation Time Spent With Patient Time: Total time managing care of this patient today ____ minutes.
[2023-10-17 20:58] VITALS: BP 119/73; PULSE 87; RESP 16; TEMP 36.2; O2SAT 97
[2023-10-17] MEDS: Valsartan 80 MG TABLET PO (21:08)
[2023-10-17] MEDS: traZODone HCL 50 MG TABLET PO ×2 (21:08→22:18)
[2023-10-17] MEDS: LORazepam 0.5 MG TABLET PO (21:08)
[2023-10-18 07:20] VITALS: BP 111/57; PULSE 78; RESP 14; TEMP 36.1; O2SAT 94
[2023-10-18] MEDS: buPROPion HCl XL 150 MG TAB.ER.24H PO (08:09)
[2023-10-18] MEDS: Acyclovir 200 MG CAPSULE 400 MG PO ×2 (08:09→22:45)
[2023-10-18] MEDS: PT OWN (Linaclotide [Linzess] 145 mcg capsule) 145 EACH PO (08:10)
[2023-10-18] MEDS: Throat Lozenge, Medicated LOZENGE 1 LOZENGE MUCOUS MEM (08:14)
--- NOTE | 2023-10-18 15:02 | P.PNPSI_ITS ---
Subjective Subjective Date of Service: 10/18/23 Reason For Visit: SI/depression Interim History: feeling kind of down. trying to be hopeful. denies safety concerns, interested in discharge tomorrow. no other notable complaints or requests. per staff, 3-day notice up tomorrow. c/o URI Sx, COVID and strep NEG. not attending groups. slept 7-8 hours. Mental Status Exam Mental Status Exam Narrative: Pt is alert and oriented; behavior is cooperative, calm; dressed in casual attire; mood is described as kind of down. trying to be hopeful ; eye contact appropriate; Speech is normal rate, volume and prosody and not pressured; thought process is organized; Thought content is on tx; otherwise pertinent to relevant topics and without any delusional content, paranoid ideations or grandiosity; denies SI/SIBI/HI/VH/AH. Diagnostics Vital Signs (24Hr): Vital Signs - 24 hr 10/17/23 20:58 10/18/23 07:20 Temperature 97.1 F 97.0 F Pulse Rate 87 78 Respiratory Rate 16 14 Blood Pressure 119/73 111/57 L Pulse Oximetry 97 94 Oxygen Delivery Method Room Air Room Air BMI result Body Mass Index 41.9 Labs 10/10/23 20:40 10/10/23 20:40 Labs: Laboratory Results - last 48 hr 10/17/23 09:35 COVID-19 ([facility]) Negative COVID-19 Clin Com See Note S. pyogenes GrpA RONALD Negative Medications Medications Current Medications Acetaminophen (Acetaminophen 325 Mg Tablet) 650 mg PO Q6H PRN PRN Reason: Headache/Pain Mild Scale (1-3) Acyclovir (Acyclovir 200 Mg Capsule) 400 mg PO BID [facility] Last Admin: 10/18/23 08:09 Dose: 400 mg Al Hydroxide/Mg Hydroxide (Magnesium Hydrox/Alum Hydrox 30 Ml Oral.Susp) 30 ml PO Q6H PRN PRN Reason: Heartburn/Nausea Benzocaine (Throat Lozenge, Medicated Lozenge) 1 lozenge MUCOUS MEM Q2H PRN PRN Reason: Sore Throat Last Admin: 10/18/23 08:14 Dose: 1 lozenge Bupropion HCl (Bupropion Hcl Xl 150 Mg Tab.Er.24h) 150 mg PO DAILY [facility] Last Admin: 10/18/23 08:09 Dose: 150 mg Guaifenesin (Guaifenesin La 600 Mg Tab.Er.12h) 600 mg PO BID PRN PRN Reason: Cough Last Admin: 10/16/23 21:34 Dose: 600 mg Hydroxyzine HCl (Hydroxyzine Hcl 25 Mg Tablet) 25 mg PO Q6H PRN PRN Reason: Anxiety Last Admin: 10/16/23 21:17 Dose: 25 mg Lorazepam (Lorazepam 0.5 Mg Tablet) 0.5 mg PO DAILY PRN PRN Reason: Anxiety Last Admin: 10/17/23 21:08 Dose: 0.5 mg Magnesium Hydroxide (Milk Of Magnesia 30 Ml Oral.Susp) 30 ml PO DAILY PRN PRN Reason: Constipation Pt Own (Linaclotide [Linzess] 145 Mcg Capsule) 145 mcg PO DAILY@0630 [facility] Last Admin: 10/18/23 08:10 Dose: 145 mcg Pat Own Med ( Semaglutide [Wegovy] 2.4 Mg/0.75 Ml Pen Injector) 2.4 mg SUBCUT We@0900 [facility] Last Admin: 10/13/23 13:49 Dose: Not Given Trazodone HCl (Trazodone Hcl 50 Mg Tablet) 50 mg PO BEDTIME MRX1 PRN PRN Reason: Insomnia Last Admin: 10/17/23 22:18 Dose: 50 mg Valsartan (Valsartan 80 Mg Tablet) 80 mg PO BEDTIME [facility]; Protocol Last Admin: 10/17/23 21:08 Dose: 80 mg Allergies Allergies Allergy/AdvReac Type Severity Reaction Status Date / Time No Known Allergies Allergy Verified 10/13/23 18:24 Assessment & Plan Assessment & Plan (1) MDD (major depressive disorder): Status: Acute Code(s): F32.9 - Major depressive disorder, single episode, unspecified (2) PTSD (post-traumatic stress disorder): Status: Acute Code(s): F43.10 - Post-traumatic stress disorder, unspecified Plan Patient is a 42 year old female with hx of MDD and PTSD who presented to ED secondary to suicidal ideation d/t increased depressive symptoms. Plan: CV Signed 3 day notice 15 minute safety checks continue home medications Start: Wellbutrin XL 150mg PO daily Referral to outpatient psychiatric provider discharge planning 10/15: Pt continues to report feeling anxious and depressed ; pt stated, I feel down and hopeless. People with cold sores don't tell people before dating. I'm not going to tell people I have herpes . Pt reports suicidal ideation. denies HI/VH/AH. attending groups. keeping to self. continue current tx plan. 10/16: Continue current management and treatment plan. 10/17: continue current management and treatment plan. 10/18: continue current management and treatment plan. 3-day up tomorrow. denies safety concerns. planning to discharge. Reason for continued inpatient stay Substantial Risk for: inability to function and rapid decompensation Time Spent With Patient Time: Total time managing care of this patient today __25__ minutes.
[2023-10-18 19:23] VITALS: BP 118/61; PULSE 73; RESP 16; TEMP 36.3; O2SAT 99
[2023-10-18 22:41] VITALS: BP 130/62; PULSE 70
[2023-10-18] MEDS: traZODone HCL 50 MG TABLET PO (22:45)
[2023-10-18] MEDS: LORazepam 0.5 MG TABLET PO (22:45)
[2023-10-18] MEDS: Valsartan 80 MG TABLET PO (22:45)
[2023-10-19] MEDS: Acyclovir 200 MG CAPSULE 400 MG PO ×2 (08:03→22:15)
[2023-10-19] MEDS: buPROPion HCl XL 150 MG TAB.ER.24H PO (08:03)
[2023-10-19] MEDS: PT OWN (Linaclotide [Linzess] 145 mcg capsule) 145 EACH PO (08:03)
[2023-10-19] MEDS: Throat Lozenge, Medicated LOZENGE 1 LOZENGE MUCOUS MEM ×3 (08:23→22:16)
[2023-10-19] MEDS: guaiFENesin LA 600 MG TAB.ER.12H PO ×2 (08:26→22:16)
[2023-10-19 08:55] VITALS: BP 107/56; PULSE 79; RESP 18; TEMP 36.5; O2SAT 97
--- NOTE | 2023-10-19 12:06 | HO.PSYCHPN ---
Subjective Subjective Date of Service: 10/19/23 Reason For Visit: SI/depression Subjective Notes: Conditional Voluntary Interim History: Reviewed with Dr. Davila. Pt retracted 3 day notice. Pt reports feeling better today; pt stated, I think the medication and groups are helping. I haven't had any suicidal thought in a few days. I'm trying to stay present and hopeful. I wanted to stay one more day to benefit from the groups before returning to work . Pt denies SI/HI/VH/AH. Plan to discharge patient home tomorrow. She is looking forward to returning to work and starting her new position. Medication Compliance: Yes Side effects from medications: No Attending Groups: Yes Review of Systems Constitutional: Reports as per HPI Eyes: Reports as per HPI Reports as per HPI Cardiovascular: Reports as per HPI Respiratory: Reports as per HPI Gastrointestinal: Reports as per HPI Genitourinary: Reports as per HPI Musculoskeletal: Reports as per HPI Skin/Breast: Reports as per HPI Reports as per HPI Psychiatric: Reports as per HPI Endocrine: Reports as per HPI Hematologic/Lymphatic: Reports as per HPI Allergic/Immunologic: Reports as per HPI Mental Status Exam Mental Status Exam Narrative: Pt is alert and oriented; behavior is cooperative and calm; dressed in casual attire; mood is described as good ; eye contact appropriate; Speech is normal rate, volume and prosody and not pressured; thought process is organized; Thought content is on tx; denies SI/HI/VH/AH. Diagnostics Vital Signs (24Hr): Vital Signs - 24 hr 10/18/23 19:23 10/18/23 22:41 10/19/23 08:55 Temperature 97.3 F 97.7 F Pulse Rate 73 70 79 Respiratory Rate 16 18 Blood Pressure 118/61 130/62 107/56 L Pulse Oximetry 99 97 Oxygen Delivery Method Room Air Room Air BMI result Body Mass Index 41.9 Labs 10/10/23 20:40 10/10/23 20:40 Medications Medications Current Medications Acetaminophen (Acetaminophen 325 Mg Tablet) 650 mg PO Q6H PRN PRN Reason: Headache/Pain Mild Scale (1-3) Acyclovir (Acyclovir 200 Mg Capsule) 400 mg PO BID [facility] Last Admin: 10/19/23 08:03 Dose: 400 mg Al Hydroxide/Mg Hydroxide (Magnesium Hydrox/Alum Hydrox 30 Ml Oral.Susp) 30 ml PO Q6H PRN PRN Reason: Heartburn/Nausea Benzocaine (Throat Lozenge, Medicated Lozenge) 1 lozenge MUCOUS MEM Q2H PRN PRN Reason: Sore Throat Last Admin: 10/19/23 08:23 Dose: 1 lozenge Bupropion HCl (Bupropion Hcl Xl 150 Mg Tab.Er.24h) 150 mg PO DAILY [facility] Last Admin: 10/19/23 08:03 Dose: 150 mg Guaifenesin (Guaifenesin La 600 Mg Tab.Er.12h) 600 mg PO BID PRN PRN Reason: Cough Last Admin: 10/19/23 08:26 Dose: 600 mg Hydroxyzine HCl (Hydroxyzine Hcl 25 Mg Tablet) 25 mg PO Q6H PRN PRN Reason: Anxiety Last Admin: 10/16/23 21:17 Dose: 25 mg Lorazepam (Lorazepam 0.5 Mg Tablet) 0.5 mg PO DAILY PRN PRN Reason: Anxiety Last Admin: 10/18/23 22:45 Dose: 0.5 mg Magnesium Hydroxide (Milk Of Magnesia 30 Ml Oral.Susp) 30 ml PO DAILY PRN PRN Reason: Constipation Pt Own (Linaclotide [Linzess] 145 Mcg Capsule) 145 mcg PO DAILY@0630 [facility] Last Admin: 10/19/23 08:03 Dose: 145 mcg Pat Own Med ( Semaglutide [Wegovy] 2.4 Mg/0.75 Ml Pen Injector) 2.4 mg SUBCUT We@0900 [facility] Last Admin: 10/13/23 13:49 Dose: Not Given Trazodone HCl (Trazodone Hcl 50 Mg Tablet) 50 mg PO BEDTIME MRX1 PRN PRN Reason: Insomnia Last Admin: 10/18/23 22:45 Dose: 50 mg Valsartan (Valsartan 80 Mg Tablet) 80 mg PO BEDTIME [facility]; Protocol Last Admin: 10/18/23 22:45 Dose: 80 mg Allergies Allergies Allergy/AdvReac Type Severity Reaction Status Date / Time No Known Allergies Allergy Verified 10/13/23 18:24 Assessment & Plan Assessment & Plan (1) MDD (major depressive disorder): Status: Acute Code(s): F32.9 - Major depressive disorder, single episode, unspecified (2) PTSD (post-traumatic stress disorder): Status: Acute Code(s): F43.10 - Post-traumatic stress disorder, unspecified Plan Patient is a 42 year old female with hx of MDD and PTSD who presented to ED secondary to suicidal ideation d/t increased depressive symptoms. Plan: CV Signed 3 day notice 15 minute safety checks continue home medications Start: Wellbutrin XL 150mg PO daily Referral to outpatient psychiatric provider discharge planning 10/15: Pt continues to report feeling anxious and depressed ; pt stated, I feel down and hopeless. People with cold sores don't tell people before dating. I'm not going to tell people I have herpes . Pt reports suicidal ideation. denies HI/VH/AH. attending groups. keeping to self. continue current tx plan. 10/16: Continue current management and treatment plan. 10/17: continue current management and treatment plan. 10/18: continue current management and treatment plan. 3-day up tomorrow. denies safety concerns. planning to discharge. 10/19: Pt retracted 3 day notice. Pt reports feeling better today; pt stated, I think the medication and groups are helping. I haven't had any suicidal thought in a few days. I'm trying to stay present and hopeful. I wanted to stay one more day to benefit from the groups before returning to work . Pt denies SI/HI/VH/AH. Plan to discharge patient home tomorrow. She is looking forward to returning to work and starting her new position. Patient educated on: diagnosis, medication risk/benefits and therapeutic strategies Informed Consent: understands Reason for continued inpatient stay Substantial Risk for: stable for discharge Time Spent With Patient Time: Total time managing care of this patient today _20___ minutes.
[2023-10-19 22:10] VITALS: BP 115/66; PULSE 74; RESP 16; TEMP 36.4; O2SAT 95
[2023-10-19] MEDS: Valsartan 80 MG TABLET PO (22:16)
[2023-10-19] MEDS: hydrOXYzine HCL 25 MG TABLET PO (22:16)
[2023-10-20 07:20] VITALS: BP 94/46; PULSE 80; RESP 18; TEMP 36.2; O2SAT 95
[2023-10-20] MEDS: Acyclovir 200 MG CAPSULE 400 MG PO (08:00)
[2023-10-20] MEDS: buPROPion HCl XL 150 MG TAB.ER.24H PO (08:01)
[2023-10-20] MEDS: PT OWN (Linaclotide [Linzess] 145 mcg capsule) 145 EACH PO (08:02)
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
== END 2023-10-20 11:59 | disposition home or self-care (01) | DRG 754 ==
LOC: HO.ED 10-11 01:36 → HO.PADLT16 10-13 13:59
PROVIDERS: Emergency Medicine; Physician Assistant; Psychiatry & Neurology Psychiatry; Admitting Provider Psychiatry & Neurology Psychiatry; Emergency Provider Student in an Organized Health Care Education/Training Program; Responsible Provider Registered Nurse; Visit Provider Psychiatry & Neurology Psychiatry
DX: F32.9 Major depressive disorder, single episode, unspecified (principal); B00.9 Herpesviral infection, unspecified; F43.10 Post-traumatic stress disorder, unspecified; Z20.822 Contact with and (suspected) exposure to COVID-19; Z79.899 Other long term (current) drug therapy
CPT/HCPCS: 36415; 80053; 80061; 80143; 80179; 80307; 81001; 81025; 82607; 82746; 83036; 84439; 84443; 85025; 87635; 87651; 99285; S9485

== ENCOUNTER → 2023-10-13 13:49 | Outpatient (BNV) | payer OTHER, SELFPAY | PROVIDERS: Admitting Provider Psychiatry & Neurology Psychiatry; Emergency Provider Student in an Organized Health Care Education/Training Program; Responsible Provider Registered Nurse; Visit Provider Registered Nurse | DX: F33.2 Major depressive disorder, recurrent severe without psychotic features (principal); F43.11 Post-traumatic stress disorder, acute | CPT/HCPCS: 90792; 99231; 99238 ==

== ENCOUNTER 2025-07-24 07:45 | Outpatient (REF) | payer OTHER, SELFPAY ==
--- OUTSIDE RECORDS SUMMARY | 2025-07-24 07:50 | XMS_ITS | Data Portability ---
Author Organization MAH[facility] Angel [facility], [address] Address [address] [place] [address] Care Team Providers Care Sustainability Communicator Name Role Phone [facility]aint[facility] Primary Care Provide r Assessment No assessment recorded. Plan of Treatment Reminders Order Date Submit Date Provider Last Modified By Organization Details Last Modified Time Details Appointments None recorded. Lab rapid SARS CoV 2 Ag, QL IA, respiratory specimen 2022 023 [email or web address] 247 _[facility], [address] [place] [address], [phone], 3 15:31:24 rapid strep group A, throat 2022 023 [email or web address] 5 _[facility], [address] [place] [address], [phone], 3 09:40:14 rapid SARS CoV 2 Ag, QL IA, respiratory specimen 2022 023 [email or web address] 5 _[facility], [address] [place] [address], [phone], 3 09:40:14 rapid flu (A+B) 2022 023 [email or web address] 5 _[facility], [address] [place] [address], [phone], 3 09:40:14 streptococc us group A, culture, throat 2022 023 [facility] [address], [place], [address], 12:06:57 Referral None recorded. Procedures None recorded. Surgeries None recorded. Imaging None recorded. Medication Orders benzonatate 200 mg capsule 2022 023 [id number], [address] [place], [id number], 17:03:21 amoxicillin 875 mg tablet 2022 023 [id number], [address] [place], [phone], 17:03:27 Patient TargetsNo targets recorded. Patient Instructions Encounter Date Encounter Id Patient Instructions Last Modified By Organization Details Last Modified Time 10/25/2022 [id number] sore throat: car e instructions [email or web address] Not available 10/25/2022 09:40:14 Take the antibiotic as prescribed. Take an over the counter probiotic daily while taking the antibiotic. Rest. Drink plenty of fluids. Gargle with warm, salty water several times daily. Over the counter ibuprofen or tylenol may be taken per package instructions for pain or fever. See printed instructions and work note. Obtain a new toothbrush in 2 days. You will be contacted when your throat culture report returns. Follow-up with your doctor if no improvement in a few days. Seek Emergency Medical evaluation for any worsening symptoms. [email or web address] Not available 10/25/2022 09:44:15 10/31/2022 [id number] coronavirus (covid-19): care instructions [email or web address] Not available 10/31/2022 15:31:24 Reason for Referral None Reported. Results Created Date Observation Date Name Description Value Unit Range Abnormal Flag Note LastModifiedBy Organization Detail LastModifiedTime 10/26/19 23 10/27/2022 BETA STREP GP A CULTU RE beta strep gp A culture COMMEN T abnormal Beta- hemol ytic colon ies, not group A Strep tococ cus isola percy. Refer ence Range : Negat rob Penic illin and ampic illin are drugs of choic e for treat ment of beta- hemol ytic strep tococ deni infec tions . Susce ptibi lity testi ng of penic illin s and other beta- lacta m agent s appro edy by the FDA for treat ment of beta- hemol ytic strep tococ deni infec tions need not be perfo rmed routi christine becau se nonsu scept ible isola nithin are extre heriberto rare in any beta- hemol ytic strep tococ cus and have not been repor percy for Strep tococ cus pyoge rafael (grou p A). (CLSI ) Not Available [facility] ([facility]) [address] [facility], [place], [address], 10/27/2022 12:06:57 10/26/19 23 10/25/2022 rapid flu (A+B) Unknown Analyte Normal = Negati ve Not Available [address], [address], 10/25/2022 08:32:17 10/26/19 23 10/25/2022 rapid flu (A+B) Unknown Analyte Normal = Negati ve Not Available [address] [place] [address], [phone], 10/25/2022 08:32:17 10/26/19 23 10/25/2022 rapid flu (A+B) Unknown Analyte negati ve Not Available [email or web address], [address], 10/25/2022 08:32:17 10/26/19 23 10/25/2022 rapid flu (A+B) Unknown Analyte negati ve Not Available david [address], [address], 10/25/2022 08:32:17 10/26/19 23 10/25/2022 rapid SARS CoV 2 Ag, QL IA, respi rator y speci men Unknown Analyte Normal =Negat rob Not Available [address] [place] [address], [place], [address], 10/25/2022 08:32:09 10/26/19 23 10/25/2022 rapid SARS CoV 2 Ag, QL IA, respi rator y speci men Unknown Analyte negati ve Not Available [address] [place] [address], [place], [phone], 10/25/2022 08:32:09 10/26/19 23 10/25/2022 rapid strep group A, throa t Unknown Analyte Normal = Negati ve Not Available [address] [place] [address], [place], [address], 10/25/2022 08:19:27 10/26/19 23 10/25/2022 rapid strep group A, throa t Unknown Analyte negati ve Not Available [address] [place] [address], [place], [address], 10/25/2022 08:19:27 11/01/19 23 10/31/2022 rapid SARS CoV 2 Ag, QL IA, respi rator y speci men Unknown Analyte Normal =Negat rob Not Available [address] [place] [address], [place], [address], 10/31/2022 14:26:28 11/01/19 23 10/31/2022 rapid SARS CoV 2 Ag, QL IA, respi rator y speci men Unknown Analyte positi ve Not Available [address] [place] [address], [place], [phone], 10/31/2022 14:26:28 Result Notes None recorded. Problems Name Problem SNOMED Code Status Onset Date Resolution Date Notes Provider Name and Address Organization Details Recorded Time Hypertensive disorder 79386543 Active 2022 Meli barcenas PA - [facility] 3 08:21:10 Anxiety 03011919 Active 2022 Meli barcenas PA Luis [facility] 3 08:21:18 Problem Notes None recorded. Medical Equipment None Reported. Allergies No known drug allergies Medications Name Sig Start Date Stop Date Status Note LastModified by Organization Details LastModified Time benzonatate 200 mg capsule Take 1 capsule 3 times a day by oral route for 10 days. 11/15 completed Not Available Not Available Not Available valsartan 80 mg tablet Take 1 tablet every day by oral route. active Not Available Not Available No t Available amoxicillin 875 mg tablet Take 1 tablet every 12 hours by oral route for 10 days. 11/15 completed Not Available Not Available Not Available hydroxyzine HCl active Not Available Not Available Not Available valacyclovi r active Not Available Not Available Not Available Wegovy 0.25 mg/0.5 mL subcutaneou s pen injector Inject by subcutane ous route. active Not Available Not Available No t Available Vitals Date Recorded Body height Body mass index (BMI) Body weight Oxygen saturation Heart rate Pain severity - 0-10 verbal numeric rating [Score] - Reported Respiratory rate Body temperature Systolic And Diastolic Provider Name and Address Organization Details Last Updated DateTime 3 165.1 cm 46.6 kg/m2 728628. 86 g 99 % 99 /min 10 20 /min 98.7 [degF] 130/83 mm[Hg] Meli Major PA - [facility] 3 08:23:50 Date Recorded Body height Body mass index (BMI) Body weight Oxygen saturation Heart rate Respiratory rate Systolic And Diastolic Provider Name and Address Organization Details Last Updated DateTime 3 165.1 cm 46.6 kg/m2 470030. 86 g 99 % 72 /min 16 /min 134/80 mm[Hg] MAHAD HOLLAND PA - [facility] 3 14:32:33 Date Recorded Body height Body mass index (BMI) Body weight Body temperature Oxygen saturation Heart rate Respiratory rate Systolic And Diastolic Provider Name and Address Organization Details Last Updated DateTime 3 165.1 cm 46.6 kg/m2 645421. 86 g 97 [degF] 97 % 90 /min 16 /min 125/84 mm[Hg] CALI FARIAS MAHAD Smith [facility] 17:05:39 Social History Question Answer Notes LastModified by [place] Details LastModified Time Tobacco Smoking Status Never Smoker Meli barcenas PA - [facility] 10/25/2022 08:21:52 Have You Had Direct Contact, Or Contact During Intimacy, With Monkeypox Rash, Scabs, Or Body Fluids From A Person With Monkeypox? No Information not available 10/25/2022 Have You Recently Traveled Abroad? No Information not available 10/25/2022 Sex: Unknown Functional Status Question Answer Note LastModified by [place] Details LastModified Time Do you use any illicit or recreational drugs? No Information not available 10/25/2022 Do you or have you ever used any other forms of tobacco or nicotine? No Information not available 10/25/2022 What is your level of alcohol consumption? None Information not available 10/25/2022 Mental Status None recorded. Family History Relationship Description Onset Age of this Age Resolved Age Notes LastModified by Organization Details LastModified Time Father No current problems or disability Not available 10/25 08:21:45 Mother No current problems or disability Not available 10/25 08:21:45 Medical History No medical history recorded. Gynecological HistoryNo gynecological history recorded. Obstetrics History GPAL:G 0 P 0 0 0 0 Immunizations Vaccine Type Date Status Note Provider Nam e and Address Organization Details Recorded Time COVID-19, mRNA, LNP-S, PF, 30 mcg/0.3 mL dose 08/29/2021 completed Meli Moriahlisa barcenas PA - [facility] 10/25/2022 08:20:09 COVID-19, mRNA, LNP-S, PF, 30 mcg/0.3 mL dose 08/31/2020 completed Meli Moriah null PA - [facility] 10/25/2022 08:20:09 COVID-19, mRNA, LNP-S, PF, 30 mcg/0.3 mL dose 08/10/2020 completed Meli Eldorado null, PA - [facility] 10/25/2022 08:20:09 Tdap 09/18/2016 completed Meli [place] null, PA - [facility] 10/25/2022 08:20:09 Influenza, split virus, quadrivalent, PF 06/24/2021 completed Meli [place] null, PA - [facility] 10/25/2022 08:20:09 Influenza, split virus, quadrivalent, PF 07/02/2017 completed Meli Moriah null, PA - [facility] 10/25/2022 08:20:09 Past Encounters Encounter ID Performer Location Encounter Start Date Encounter Closed Date Diagnosis/Indication Diagnosis SNOMED-CT Code Diagnosis ICD10 Code Diagnosis IMO Codes Diagnosis Note [id number] [address] [place] [address] 12/07/2016 19:02:35 12/07/2016 19:47:40 [id number] [address] [place] [address] 11/09/2016 19:11:27 11/09/2016 19:53:31 [id number] Johana Ac MD [address] [place] [address] 10/25/2022 08:12:40 10/25/2022 09:59:27 Acute pharyngitis 513451341 J02.9 [id number] SHANDA DENISE MD [address] [place] [address] 10/31/2022 11:38:45 10/31/2022 15:35:47 COVID-19 169034808 U07.1 Cough 38849757 R05.9 CoughBlack Elderberry Syrup:1-2 tsp 2-3 times a day for 5 days as needed for coughing.S ambucol Black Elderberry Original Syrup (available at [employer] )Margaret [employer] Black Elderberry Syrup, 5.4-Ounce Bottle (available at [employer] or [employer]) Use a cool mist humidifier in the room that you sleep to add moisture to the air, which should soothe the airways and help loosen any mucus that may be present. [id number] Armando Darnell DO [address] [place] [address] 11/15/2022 16:41:30 11/15/2022 17:38:22 Fit to return to work [id number] Z78.9 normal exammay return to work Health Concerns Section Related Observation LastModified by Organization Detai ls LastModified Time None Recorded Concern Status LastModified by Organization Details LastModified Time None Recorded Advance Directives Directive None Recorded Payers Insurance Date Sequence Insurance Name Policy Number Policy Martinez Covered Member ID Martinez Member ID Guarantor Name 11/15/2022 1 [facility] [id number] 3 Sanam Alex [id number] Sanam Alex Notes Date Note Type Note Provider Name and Address Organization Details Recorded Time 10/25/2022 text/html Sore throatRepor percy by PatientSore ThroatFor associated symptoms, patient reportssore throat,hoarseness,nasal congestion,coughing, andsinus pain/ congestionbut reportsno sputum production,no shortness of breath,no wheezing,no vomiting, andno nausea. For source of patient information, patient reportsinformation obtained from patientandpatient arrived at urgent care ambulatory. For location, patient reportsthroat. For severity, patient reportsmoderate. For quality, patient reportshurts to swallow. For onset/timing, patient reports1 days. 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 No fever but some chills. Some pressure in her ears. No headache, rash, stiff neck, chest pain, shortness of breath, GI symptoms or body aches.ROS as noted in the HPI Johana Ac [facility] [address] [facility] [place], [address], [place] - [facility] 10/25/2022 09:52:17 10/31/2022 text/html ROS as noted in the HPI She is being treated for Strep throat since 10/26/2022. Her throat feels better but she is not feeling well. She has body aches, fatigue, and headache. She still has a dry cough but no SOB. She tested positive for Covid at home today and needs documentation for work. SHANDA DENISE MD [address] [place], [address], [employer] [facility] 10/31/2022 15:40:02 11/15/2022 text/html ROS as noted in the HPI 42 yo femaleDx with COVID an strep on 10/31 needs a note to return to work at [employer] no c/o No feverNo chillsNo coughNo difficulty breathing or respiratory distressNo CPNo congestionNo ear painNo sore throatNo Abdominal painNo nauseaNo vomitingNp diarrheaNo myalgiaNo fatigueNo rashNo HANo dizzinessNo recent travelNo known sick contacts Armando Darnell, [address] [place], [address], [employer] [facility] 11/15/2022 17:34:42 OBGyn Episode No OBEpisode recorded.
--- OUTSIDE RECORDS SUMMARY | 2025-07-24 07:50 | XMS_ITS | Clinical Summary ---
Author Organization [facility] [address] [place] [address] Address [address] [facility] [address] Phone Care Team Providers Care Rail Gang Supervisor Name Role Phone Shivam Hooper MD Primary Care Provider [phone] Allergies No known active allergies Medications acyclovir (ZOVIRAX) 400 mg tablet TAKE 1 TABLET BY MOUTH TWICE DAILY 024 Active ivermectin 1 % cream APPLY TOPICALLY TO THE AFFECTED AREA OF FACE EVERY DAY FOR ROSACEA 023 Active linaCLOtide (Linzess) 72 mcg capsuleIndicati ons:Chronic idiopathic constipation Take 1 capsule (72 mcg total) by mouth 1 (one) time each day. 30 each 11 025 2025 Active fluticasone propionate (FLONASE) 50 mcg/actuation nasal spray Administer 2 sprays into each nostril 1 (one) time each day. Shake gently. Before first use, prime pump. After use, clean tip and replace cap. 16 g 5 025 2025 Active Wellbutrin XL 300 mg 24 hr tablet 1 tablet (300 mg total) 1 (one) time each day at the same time. Active cromolyn (GASTROCROM) 100 mg/5 mL solution 025 Active fluconazole (DIFLUCAN) 150 mg tablet TAKE 1 TABLET BY MOUTH DAILY FOR 1 DAY. MAY REPEAT IN 72 HOURS IS STILL SYMPTOMATIC Active hydrOXYzine HCL (ATARAX) 10 mg tablet as directed Orally Active montelukast (SINGULAIR) 10 mg tablet Take 1 tablet (10 mg total) by mouth at bedtime. 025 Active azelaic acid (AZELEX) 20 % cream Apply topically 2 (two) times a day. After skin is thoroughly washed and patted dry, gently but thoroughly massage a thin film of azelaic acid cream into the affected area twice daily, in the morning and evening. Active clascoterone (Winlevi) 1 % cream Apply topically 2 (two) times a day. Active valsartan (DIOVAN) 80 mg tablet TAKE 1 TABLET(80 MG) BY MOUTH 1 TIME EACH DAY 90 tablet Active EPINEPHrine (EpiPen 2-Maldonado) 0.3 mg/0.3 mL injection Inject 0.3 mL (0.3 mg total) into the thigh if needed for anaphylaxis. 1 each 1 Active levonorgestreL 17.5 mcg/24 hr (5 yrs) 19.5 mg intrauterine device IUD by Intrauterine route. 2024 Discontinued EPINEPHrine (EpiPen 2-Maldonado) 0.3 mg/0.3 mL injection Inject 0.3 mL (0.3 mg total) into the thigh if needed for anaphylaxis. 1 each 025 2024 Discontinued(R eorder) semaglutide (Wegovy) 0.25 mg/0.5 mL injection pen Inject by subcutaneous route. 2024 Discontinued Active Problems Problem Noted Date Diagnosed Date Acquired hypothyroidism 01/18/2025 Dyslipidemia 01/18/2025 HSV infection 01/18/2025 Sebaceous cyst 01/18/2025 Morbid obesity ([facility] V24, [facility] V28) 2024 Severe obesity ([facility] V24, [facility] V28) 2024 Type 2 diabetes mellitus wit hout complications ([facility] V24, [facility] V28) 01/18/2025 Migraines 01/18/2025 Essential (primary) hypertension 01/18/2025 Depression 01/18/2025 Arthritis of neck 01/18/2025 Vitamin D deficiency 01/18/2025 Chronic pain of both knees 07/31/2024 Chronic midline low back pain without sciatica 1 10/01/2023 HTN (hypertension) 05/19/2024 Morbid obesity with BMI of 4 0.0-44.9, adult ([facility] V24, [facility] V28) 05/19/2024 Binge eating disorder 06/01/2023 Cervical arthritis 06/01/2023 Anxiety 10/25/2022 Hypertensive disorder 10/25/2022 Herpes simplex vulvovaginitis 09/18/2021 HERIBERTO (obstructive sleep apnea) 04/21/2021 Overview (05/19/2024): Sleep Study: 04/07/21. Moderate HERIBERTO. [facility] Polysomnogram: Date 04/07/2021; Wt 280#; BMI 45; SE 61%; SM 70%; REM 20%; RDI 19 (AHI 17), REM (RDI 27 - AHI 25), Central apneas 1; Obstructive apneas 15; Mixed apneas 0; hypopneas 60; RERAs 7; average oxygen saturation 94% (lowest 86% - without saturations <88% for 5% or more of study); PLMs 3. - Obstructive Sleep Apnea - moderate; mostly hypopneas and obstructive apneas; without sleep related hypoventilation by 2020 polysomnogram. KYMBERLY (generalized anxiety disorder) 12/25/2020 Overview (05/19/2024): Had formal neuropsychiatric testing done for symptoms of inattention, they were not able to diagnosed ADHD but felt that the patient met criteria for dysthymia and generalized anxiety Migraine 06/03/2018 Overview (05/19/2024): Follows with neurology Vertigo 06/03/2018 Overview (05/19/2024): Secondary to cerumen impaction. 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 Overview (05/19/2024): On Rifampin Dysthymia 07/01/2006 Encounters Date Type Department Care Team Description 07/13/2025 Results Follow-Up Adult Medicine [address] [phone] Silvia Conti PA 07/06/2025 Telephone Adult [address] [phone] Silvia Conti PA 07/03/2025 5:10 PM EST Lab Draw [address] 07/03/2025 4:00 PM EST Office Visit [address] [phone] Silvia Conti PA Essential (primary) hypertension (Primary Dx); Lower extremity edema; Class 3 severe obesity with body mass index (BMI) of 45.0 to 49.9 in adult, unspecified obesity type, unspecified whether serious comorbidity present (CMS/HCC V24, CMS/HCC V28); Allergic reaction, subsequent encounter; HERIBERTO (obstructive sleep apnea); Herpes simplex vulvovaginitis; Anxiety; Depression, unspecified depression type 06/06/2025 Telephone Adult [address] [phone] Shivam Hooper MD 05/04/2025 Telephone Adult [address] [phone] Shivam Hooper MD 05/02/2025 Nurse Triage [address] [phone] Shivam Hooper MD from Last 3 Months Immunizations Immunization Administration Dates Next Due Influenza trivalent, with pr eservative (Fluzone; Afluria) 6mo and older 06/24/2021,07/02/2017 PPD Test 06/11/2004 Starbates SARS-CoV-2 COVID-19, mRNA, LNP-S, preservative free 08/29/2021 Tdap Tetanus diptheria acell ular pertussis (Boostrix; Adacel) 7yo and older 09/18/2016 Surgical History Surgery Date Site/Laterality Comments OTHER SURGICAL HISTORY PROCEDURE: DENIES PREVIOUS SURGERY Medical History Medical History Date Comments Depression 07/01/2006 DX:Depression Snoring 04/11/2017 DX:Snoring; COMM ENT: 04/03/2017 Home Sleep Study did not reveal sleep apnea. Bartonella infection 05/10/2017 DX:Bartonel la infection; COMMENT: On Rifampin HTN (hypertension) DX:HTN (hyper tension) Anxiety DX:Anxiety Migraine 06/03/2018 DX:Migraine; COM MENT: Follows with neurology Vertigo 06/03/2018 DX:Vertigo; COMM ENT: Secondary to cerumen impaction. Follows with neurology and also referred to ENT Encounter for allergy testing 02/07/2018 DX :Encounter for allergy testing; COMMENT: Tested for inhaled allergens and food. All normal except positive reaction to cockroaches and guinea pigs. Family History Medical History Relation Name Comments Hypertension Brother Alcohol abuse Father Heart attack Father age 64 Hypertension Father Other: heart failure Maternal Grandmother Breast cancer Mother Diabetes Mother Schizophrenia Mother Breast cancer Other mat cousins Other: brain cancer Other mat cousins father's cousin No Known Problems Sister Relation Name Status Comments Brother Father Maternal Grandmother Mother Other mat cousins Sister Social History Tobacco Use Types Packs/Day Years Used Date Smoking Tobacco: Never Smokeless Tobacco: Never Tobacco Cessation:Counseling Given: Not Answered Alcohol Use Standard Drinks/Week Comments Yes 0 (1 standard drink = 0.6 oz pur e alcohol) social Comments No Sex and Gender Information Value Date Recorded Sex Assigned at Female 08/04/2024 3:58 PM EST Legal Sex Female 2:52 AM EST Gender Identity Female 08/04/2024 3:58 PM EST Sexual Orientation Straight 08/04/2024 3: 58 PM EST Obstetrics History Para Term AB IAB SAB Ectopic Multiple Livin g Live Births 0 0 0 Comments IUD Last Filed Vital Signs Vital Sign Reading Time Taken Comments Blood Pressure 133/79 07/03/2025 3:52 PM EST Pulse 85 07/03/2025 3:52 PM EST Temperature 36.2 C (97.2 F) 07/03/2025 3:52 PM EST Respiratory Rate 18 07/03/2025 3:52 PM EST Oxygen Saturation 98% 07/03/2025 3:52 PM EST Inhaled Oxygen Concentration - - Weight 137 kg (302 lb 3.2 oz) 07/03/2025 3:52 PM EST Height 165.1 cm (5' 5 ) 07/03/2025 3:52 PM EST Body Mass Index 50.29 07/03/2025 3:52 PM EST Plan of Treatment Upcoming Encounters Date Type Department Care Team (Late st Contact Info) Description 10/03/2025 7:30 AM EST Office Visit Adult Medicine [facility] [address] [place], [place] [phone] Silvia Conti PA [address] [place], [place] Health Maintenance Due Date Last Done Comments Diabetes: Annual Foot Exam 1992 Diabetes: Annual Retina Eye Exam 1992 Hepatitis B Vaccines (1 of 3 - 19+ 3-dose series) 2001 Pneumococcal Vaccine: Pediatrics (0 to 5 Years) and At-Risk Patients (6 to 49 Years) (1 of 2 - PCV) 2001 HPV Vaccines (1 - 3-dose SCDM series) 2009 Cervical Cancer Screening: Pap Smear 04/04/2021 04/04/2018 Social Influencers of Health Screening 08/01/2022 Depression Screening 08/23/2024 Diabetes: Annual Urine Albumin-Creatinine Ratio (uACR) 09/30/2024 COVID-19 Vaccine ( season) 2025 08/29/2021, 08/31/2020, 08/10/2020 Influenza Vaccine (#1) 2025 06/24/2021, 2016 Diabetes: Blood Sugar Control Test (HGBA1C) 12/31/2025 07/03/2025, 12/27/2024, 05/21/2023 Diabetes: Annual GFR (Glomerular Filtration Rate) 07/03/2026 07/03/2025, 12/27/2024, 11/01/2024, Additional history exists Hypertension/CHF/CAD Annual BMP Blood Test 07/03/2026 07/03/2025, 12/27/2024, 11/01/2024, Additional history exists DTaP,Tdap,and Td Vaccines (2 - Td or Tdap) 09/18/2026 09/18/2016 Breast Cancer Screening 12/22/2026 12/23/19 25, 12/20/2023, 12/20/2023, Additional history exists Cholesterol Screening (Lipid Panel) 12/13/2029 12/13/2024, 11/01/2024, 04/19/2024, Additional history exists RSV Immunization Adult Patients (1 - 1-dose 75+ series) 2057 HIV Screening Completed 05/21/2023 Hepatitis C Screening Completed 05/21/2023 HIB Vaccines Aged Out No longer eligi ble based on patient's age to complete this topic Hepatitis A Vaccines Aged Out No long er eligible based on patient's age to complete this topic IPV Vaccines Aged Out No longer eligi ble based on patient's age to complete this topic MMR Vaccines Aged Out No longer eligi ble based on patient's age to complete this topic Meningococcal ACWY Vaccine Aged Out N o longer eligible based on patient's age to complete this topic Meningococcal B Vaccine Aged Out No l onger eligible based on patient's age to complete this topic RSV Immunization Patients Under 20 months Aged Out No longer eligible based on patient's age to complete this topic Varicella Vaccines Aged Out No longer eligible based on patient's age to complete this topic Goals Goal Patient Goal Type Associated Problems Recent Progress Patient-Stated? Author STG's 6 visits General Yes Lamberto Noriega, PT Note: Pt will perform correct technique for sup<->sit transfers w/ min VC's in 5/5 trials. Pt is Independent with initial HEP of stretching. Pt will demonstrate a 1 grade or better increase in VMO strength to improve stability at L PF joint. Pt will report a 50% decrease in knee pain w/ sit to stand transfers. LTG's 12 visits General Yes Lamberto Noriega, PT Note: Pt will I demonstrate proper technique for sup<->sit transfers in 5/5 trials. Pt will be Independent and with final HEP of core and LE strengthening. Pt will demonstrate B VMO MMT of 4/5 or better to improve stability at L PF joint. Pt will report a 75% decrease in knee pain w/ sit to stand transfers. Procedures Procedure Name Priority Date/Time Associated Diagnosis Comments BASIC METABOLIC PANEL Routine 07/03/2025 4:47 PM EST Essential (primary) hypertension HEMOGLOBIN A1C Routine 07/03/2025 4:47 PM EST Class 3 severe obesity with body mass index (BMI) of 45.0 to 49.9 in adult, unspecified obesity type, unspecified whether serious comorbidity present (CMS/HCC V24, CMS/HCC V28) THYROID STIMULATING HORMONE WITH REFLEX TO FREE T4 AND FREE T3 Routine 07/03/2025 4:47 PM EST Class 3 severe obesity with body mass index (BMI) of 45.0 to 49.9 in adult, unspecified obesity type, unspecified whether serious comorbidity present (CMS/HCC V24, CMS/HCC V28) MG MAMMO DIGITAL SCREENING W DOUGLAS BILAT Routine 12/22/2024 11:31 AM EDT Encounter for screening mammogram for breast cancer LIPID PANEL WITH REFLEX TO DIRECT LDL Routine 12/13/2024 9:37 AM EDT Malabsorption Urticaria, chronic Candidal enteritis Perioral dermatitis Elevated LDL cholesterol level HEPATITIS C SCREENING Routine 05/21/2023 HIV SCREENING Routine 05/21/2023 PAP SMEAR Routine 04/04/2018 from Last 3 Months or Most Recently Relevant to Health Maintenance Results * Thyroid stimulating hormone with reflex to free t4 and free t3 (07/03/2025 4:47 PM EST) TSH 1.72 0.40 - 4.00 mcIU/mL LAB CHEMISTRY METHOD 07/03/2025 7:52 PM EST [facility] Blood Venous blood specimen / Unknown Venipuncture / Unknown 07/03/2025 4:47 PM EST 07/03/2025 4:47 PM EST us Silvia TOBIN LAB BLOOD ORDERABLES Fi nal Result [facility] [address] [place] [address], [place] [phone] * Hemoglobin A1c (07/03/2025 4:47 PM EST) [facility] Hemoglobin A1C 5.4 <6.5 % LAB CHEMISTRY METHOD 07/03/2025 10:07 PM [facility] Mean Bld Glu Estim. 108 mg/dL LAB CHEMISTRY METHOD 07/03/2025 10:07 PM [facility] Blood Venous blood specimen / Unknown Venipuncture / Unknown 07/03/2025 4:47 PM EST 07/03/2025 4:47 PM EST Silvia TOBIN LAB BLOOD ORDERABLES Fi nal Result [facility] [address] [place] [address], * Basic metabolic panel (07/03/2025 4:47 PM EST) [facility] Sodium 137 133 - 145 mmol/L LAB CHEMISTRY METHOD 07/03/2025 7:11 PM [facility] Potassium 4.1 3.5 - 5.5 mmol/L LAB CHEMISTRY METHOD 07/03/2025 7:11 PM [facility] Chloride 103 96 - 110 mmol/L LAB CHEMISTRY METHOD 07/03/2025 7:11 PM [facility] CO2 30 21 - 32 mmol/L LAB CHEMISTRY METHOD 07/03/2025 7:11 PM [facility] Anion Gap 4 3 - 11 LAB CHEMISTRY METHOD 07/03/2025 7:11 PM [facility] Glucose 91 70 - 100 mg/dL LAB CHEMISTRY METHOD 07/03/2025 7:11 PM [facility] BUN 14 5 - 25 mg/dL LAB CHEMISTRY METHOD 07/03/2025 7:11 PM [facility] Creatinine 0.56 0.50 - 1.10 mg/dL LAB CHEMISTRY METHOD 07/03/2025 7:11 PM EST [facility] eGFR 117 >=60 mL/min/1. 73m2 LAB CHEMISTRY METHOD 07/03/2025 7:11 PM EST [facility] Comment:Calculation based on the Chronic Kidney Disease Epidemiology Collaboration (CKD-EPI) equation refit without adjustment for race. BUN/Creatinine Ratio 25.0 LAB CHEMISTRY METHOD 07/03/2025 7:11 PM EST [facility] Calcium 9.5 8.5 - 10.5 mg/dL LAB CHEMISTRY METHOD 07/03/2025 7:11 PM EST [facility] Blood Venous blood specimen / Unknown Venipuncture / Unknown 07/03/2025 4:47 PM EST 07/03/2025 4:47 PM EST Silvia TOBIN LAB BLOOD ORDERABLES Fi nal Result [facility] [address] [place] [address], [place] [phone] * MG Mammo Digital Screening w Douglas bilat (12/22/2024 11:31 AM EDT) Anatomical Region Laterality Modality Breast Bilateral Mammography 12/22/2024 4:52 PM EDT Impressions 12/22/2024 4:55 PM EDT No mammographic evidence for malignancy. BI-RADS CATEGORY: 1 - NEGATIVE RECOMMENDATION: Screening bilateral mammogram is recommended in 1 year. Mammo Location: [facility], [address] [place] [address], [id number], . -------- FINAL REPORT -------- Dictated By: Nanette Barraza Dictated Date: 12/22/2024 16:52 ET Assigned Physician: Nanette Barraza Reviewed and Electronically Signed By: Nanette Barraza Signed Date: 12/22/2024 16:55 ET Workstation ID: [id number] Transcribed By: Self Edit Transcribed Date: 12/22/2024 16:52 ET Narrative 12/22/2024 4:55 PM EDT Bilateral screening mammogram. CLINICAL: 44 years old, Female, routine annual exam. COMPARISON: Prior screening mammogram from 12/20/2023. TECHNIQUE: Bilateral MLO and CC views were obtained digitally with 2D C views and 3-D mammogram (digital breast tomosynthesis). Computer-aided detection was utilized in evaluation of this exam (CAD). FINDINGS: There is no evidence of suspicious mass or architectural distortion. No worrisome calcifications are evident. There has been no significant change from prior exam(s). BREAST DENSITY: B - There are scattered areas of fibroglandular density. Procedure Note Nanette Barraza MD - 12/22/2024 Bilateral screening mammogram. CLINICAL: 44 years old, Female, routine annual exam. COMPARISON: Prior screening mammogram from 12/20/2023. TECHNIQUE: Bilateral MLO and CC views were obtained digitally with 2D Cviews and 3-D mammogram (digital breast tomosynthesis). Computer-aideddetection was utilized in evaluation of this exam (CAD). FINDINGS: There is no evidence of suspicious mass or architectural distortion. Noworrisome calcifications are evident. There has been no significantchange from prior exam(s). BREAST DENSITY: B - There are scattered areas of fibroglandular density. IMPRESSION: No mammographic evidence for malignancy. BI-RADS CATEGORY: 1 - NEGATIVE RECOMMENDATION: Screening bilateral mammogram is recommended in 1 year. Mammo Location: [facility], [address] [place] [address], [phone], . -------- FINAL REPORT -------- Dictated By: Nanette Barraza Dictated Date: 12/22/2024 16:52 ET Assigned Physician: Nanette Barraza Reviewed and Electronically Signed By: Nanette Barraza Signed Date: 12/22/2024 16:55 ET Workstation ID: [id number] Transcribed By: Self Edit Transcribed Date: 12/22/2024 16:52 ET us Shivam Hooper MD IMG BI PROCEDURES Final Result * (ABNORMAL) Lipid panel with reflex to direct LDL (12/13/2024 9:37 AM EDT) [facility] Cholesterol 185 0 - 200 mg/dL LAB CHEMISTRY METHOD 12/13/2024 11:37 AM EDT [facility] Triglycerides 95 0 - 150 mg/dL LAB CHEMISTRY METHOD 12/13/2024 11:37 AM EDT [facility] HDL 56 >=40 mg/dL LAB CHEMISTRY METHOD 12/13/2024 11:37 AM EDT [facility] LDL Calculated 110(H) 0 - 100 mg/dL LAB CHEMISTRY METHOD 12/13/2024 11:37 AM EDT [facility] VLDL Cholesterol [place] 19 mg/dL LAB CHEMISTRY METHOD 12/13/2024 11:37 AM EDT [facility] Non HDL Chol. (LDL+VLDL) 129 <145 mg/dL LAB CHEMISTRY METHOD 12/13/2024 11:37 AM EDT [facility] Chol/HDL Ratio 3.3 0.0 - 4.4 LAB CHEMISTRY METHOD 12/13/2024 11:37 AM T [facility] Blood Venous blood specimen / Unknown Venipuncture / Unknown 12/13/2024 9:37 AM EDT 12/13/2024 10:08 AM EDT us Chelsey Bradley PRIMER INSPECTOR LAB BLOOD ORDERABLES Final R esult [facility] [address] [place] [address], * HIV Screening (05/21/2023) [facility] HIV Screening Abstracted Historical Provider HEALTH MAINTENANCE Final Result * Hepatitis C Screening (05/21/2023) [facility] Hepatitis C Screening Abstracted Historical Provider HEALTH MAINTENANCE Final Result * Pap Smear (04/04/2018) Pap smear No Interpretation , Abstracted Historical Provider HEALTH MAINTENANCE Final Result from Last 3 Months or Most Recently Relevant to Health Maintenance Insurance [facility] Care Teams Rail Gang Supervisor Relationship Specialty Start Date End Date Shivam Hooper MD [facility] [place] [phone] PCP - General Internal Medicine 04/13/25
--- OUTSIDE RECORDS SUMMARY | 2025-07-24 07:50 | XMS_ITS | Encounter Summary ---
Author Organization [facility] Address [address] [place] [address] Care Team Providers Care Sanitarian Aide Name Role Phone Shivam Hooper MD Primary Care Provider [phone] Encounter Details Date Type Department Care Team (Late st Contact Info) Description 07/13/2025 Results Follow-Up Adult Medicine [address] [phone] Silvia Conti PA [address] [place] [address] Social History Tobacco Use Types Packs/Day Years Used Date Smoking Tobacco: Never Smokeless Tobacco: Never Alcohol Use Standard Drinks/Week Comments Yes 0 (1 standard drink = 0.6 oz pur e alcohol) social Comments No Sex and Gender Information Value Date Recorded Sex Assigned at Female 08/04/2024 3:58 PM EST Legal Sex Female 2:52 AM EST Gender Identity Female 08/04/2024 3:58 PM EST Sexual Orientation Straight 08/04/2024 3: 58 PM EST documented as of this encounter Plan of Treatment Upcoming Encounters Date Type Department Care Team (Late st Contact Info) Description 10/03/2025 7:30 AM EST Office Visit Adult Medicine [address] [phone] Silvia Conti PA [address] [place] [address] documented as of this encounter Goals Goal Patient Goal Type Associated Problems Recent Progress Patient-Stated? Author STG's 6 visits General Yes Lamberto Noriega PT Note: Pt will perform correct technique for sup<->sit transfers w/ min VC's in 5/5 trials. Pt is Independent with initial HEP of stretching. Pt will demonstrate a 1 grade or better increase in VMO strength to improve stability at L PF joint. Pt will report a 50% decrease in knee pain w/ sit to stand transfers. LTG's 12 visits General Yes Lamberto Noriega PT Note: Pt will I demonstrate proper technique for sup<->sit transfers in 5/5 trials. Pt will be Independent and with final HEP of core and LE strengthening. Pt will demonstrate B VMO MMT of 4/5 or better to improve stability at L PF joint. Pt will report a 75% decrease in knee pain w/ sit to stand transfers. documented as of this encounter Visit Diagnoses Not on filedocumented in this encounter Care Teams Sanitarian Aide Relationship Specialty Start Date End Date Shivam Hooper MD [address] [place] [phone] PCP - General Internal Medicine 04/13/25 documented as of this encounter
--- NOTE | 2025-07-24 07:58 | EMG_ITS ---
Chief complaint: Right leg numbness Referred by: Anthony Saunders MD Procedure done: NCS and EMG of right lower extremity Right peroneal and tibial motor studies were performed with F responses and tibial H-reflex. Right superficial peroneal and sural sensory studies were performed and median lateral mixed plantars sensory studies were performed and needle examination was performed. Findings: Peroneal amplitudes were significantly diminished especially across fibular head with normal conduction velocities and distal latencies. Sensory studies did not reveal any significant abnormality. Later responses were normal. 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
== END 2025-07-24 07:46 | disposition home or self-care (01) ==
LOC: HO.NEURO 07:45
PROVIDERS: PCP Internal Medicine; Visit Provider Student in an Organized Health Care Education/Training Program
DX: R20.0 Anesthesia of skin (principal)
CPT/HCPCS: 95886; 95910

== ENCOUNTER → 2025-07-24 07:58 | Outpatient (BNV) | payer OTHER, SELFPAY | PROVIDERS: PCP Internal Medicine; Visit Provider Psychiatry & Neurology Neurology | DX: R20.2 Paresthesia of skin (principal) | CPT/HCPCS: 95886; 95909 ==